=== PATIENT | female | born 1950 | race Caucasian/White ===

== ENCOUNTER 2017-05-16 16:58 | Inpatient (IN) | payer MEDICARE, BC ==
[~2017-05-16] VITALS: Ht 160 cm; Wt 72.6 kg
[2017-05-16 17:55] LABS: BASOPHILS 0.2 % (0-2); EOSINOPHILS 0.3 % (0-7); HEMATOCRIT 38.8 % (36.0-48.0); HEMOGLOBIN 13.6 g/dL (12-16); IMMATURE GRANULOCYTES 0.5 % (0-5); LYMPHOCYTES 12.3 % (15-50); MCH 32.3 pg (26.0-34.0); MCHC 35.1 g/dL (31.0-37.0); MCV 92.2 fL (80.0-100.0); MEAN PLATELET VOLUME 9.4 fL (7.4-10.4); MONOCYTES 7.5 % (2-11); NEUTROPHILS 79.2 % (40-80); PLATELET COUNT 291 10x3/uL (130-400); RBC 4.21 10x6/uL (4.00-5.40); RDW 13.8 % (11.5-14.5); WBC 11.6 10x3/uL (4.8-10.8)
[2017-05-16 18:15] LABS: ALBUMIN 3.8 g/dL (3.4-5.0); ALKALINE PHOSPHATASE 73 U/L (46-116); ALT (SGPT) 36 U/L (10-68); BILIRUBIN - TOTAL 0.48 mg/dL (0.2-1.3); CALC OSMOLALITY 244 mosm/kg (275-300); CALCIUM 8.5 mg/dL (8.5-10.1); CARBON DIOXIDE 22.9 mmol/L (21.0-32.0); CHLORIDE - SERUM 86 mmol/L (98-107); CREATININE - SERUM 0.6 mg/dL (0.6-1.3); GLUCOSE 121 mg/dL (74-106); POTASSIUM - SERUM 3.8 mmol/L (3.5-5.1); PROTEIN - SERUM 7.2 g/dL (6.4-8.2); SODIUM 122 mmol/L (136-145); UREA NITROGEN 8 mg/dL (7-18); eGFR NON AFRICAN AMERICAN > 90 mL/min (90-120)
[2017-05-16 18:26] LABS: CKMB 2.5 U/L (0.0-3.6); CREATINE KINASE 140 UL (21-215)
[2017-05-16 18:28] LABS: TROPONIN-I < 0.017 ng/mL (0.000-0.060)
[2017-05-16 19:00] LABS: APPEARANCE CLEAR (CLEAR); BILIRUBIN NEGATIVE (NEGATIVE); COLOR YELLOW (YELLOW); GLUCOSE NEGATIVE (NEGATIVE); KETONE NEGATIVE (NEGATIVE); NITRITE NEGATIVE (NEGATIVE); PROTEIN NEGATIVE (NEGATIVE); UROBILINOGEN NORMAL (NORMAL)
[2017-05-16 19:16] LABS: INR 0.9 (0.85-1.17)
[2017-05-16 19:17] LABS: APTT 27.9 SECONDS (22.8-39.4)
[2017-05-16 20:13] LABS: CREATINE KINASE 87 UL (21-215)
[2017-05-16 20:22] LABS: TROPONIN-I < 0.017 ng/mL (0.000-0.060)
--- NOTE | 2017-05-16 20:52 | NUR ---
PT ARRIVED ON FLOOR VIA STRETCHER. TRANSFERRED TO BED BY NURSE X2 AND AID. SPOUSE AT SIDE. NG TUBE RETURNED TO [facility]. INCIDENT OF EMESIS X1 ON TRANSFER. IV TO LEFT HAND NS AT 125. MELISSA MAT IN PLACE. SCD'S AND NON SLIP SOCKS APPLIED. DENTURE CARE PROVIDED. ORIENTED TO ROOM AND CALL LIGHT. PRAJAPATI IN PLACE FROM ER.
[2017-05-16 21:14] VITALS: BP 136/81; BMI 28.4
[2017-05-16] MEDS ORDERED: ANASTROZOLE1 MG PO (21:19)
[2017-05-16] MEDS ORDERED: LOTREL 10/20 CA1 CAP PO (21:20)
[2017-05-16] MEDS ORDERED: LIPITOR80 MG PO (21:21)
[2017-05-16] MEDS ORDERED: HYDROCHLOROTH12.5 M1 PO (21:21)
[2017-05-16] MEDS ORDERED: FLORAJEN3 CAPS460 MG PO (21:23)
[2017-05-16] MEDS ORDERED: ASPIRIN325 MG PO (21:24)
--- NOTE | 2017-05-16 21:27 | NUR ---
RN NOTE: ADMISSION ASSESSMENT COMPLETE. WILL MONITOR FOR NEEDS.
--- NOTE | 2017-05-17 01:42 | NUR ---
PT IN HIGH FOWLERS POSITION. NG TO LIWS. EYES CLOSED. RESP EVEN AND UNLABORED. CALL LIGHT AT SIDE.
[2017-05-17 01:48] LABS: CREATINE KINASE 69 UL (21-215)
[2017-05-17 01:49] LABS: TROPONIN-I < 0.017 ng/mL (0.000-0.060)
[2017-05-17 01:52] VITALS: BP 125/75
[2017-05-17 03:58] LABS: BASOPHILS 0.1 % (0-2); EOSINOPHILS 0.1 % (0-7); HEMOGLOBIN 13.6 g/dL (12-16); IMMATURE GRANULOCYTES 0.2 % (0-5); LYMPHOCYTES 11.9 % (15-50); MCHC 34.9 g/dL (31.0-37.0); MCV 91.8 fL (80.0-100.0); MEAN PLATELET VOLUME 9.5 fL (7.4-10.4); MONOCYTES 6.4 % (2-11); NEUTROPHILS 81.3 % (40-80); RBC 4.25 10x6/uL (4.00-5.40); RDW 13.9 % (11.5-14.5); WBC 9.1 10x3/uL (4.8-10.8)
[2017-05-17 04:06] LABS: PLATELET COUNT 356 10x3/uL (130-400)
[2017-05-17 04:19] LABS: ALKALINE PHOSPHATASE 56 U/L (46-116); ALT (SGPT) 27 U/L (10-68); BILIRUBIN - TOTAL 0.33 mg/dL (0.2-1.3); CALC OSMOLALITY 262 mosm/kg (275-300); CARBON DIOXIDE 21.1 mmol/L (21.0-32.0); CHLORIDE - SERUM 96 mmol/L (98-107); GLUCOSE 96 mg/dL (74-106); PROTEIN - SERUM 5.6 g/dL (6.4-8.2); SODIUM 132 mmol/L (136-145); UREA NITROGEN 6 mg/dL (7-18)
[2017-05-17 04:26] LABS: CREATININE - SERUM 0.3 mg/dL (0.6-1.3)
[2017-05-17 04:27] LABS: eGFR NON AFRICAN AMERICAN > 90 mL/min (90-120)
[2017-05-17 04:28] LABS: CALCIUM 6.7 mg/dL (8.5-10.1); POTASSIUM - SERUM 2.3 mmol/L (3.5-5.1)
[2017-05-17 04:46] VITALS: BP 122/82
--- NOTE | 2017-05-17 04:49 | NUR ---
VERY LARGE DIFFERENCE BETWEEN ER LAB WORK AND AM LAB WORK LAB TO REDRAW BMP.
[2017-05-17 05:12] LABS: CALC OSMOLALITY 255 mosm/kg (275-300); CARBON DIOXIDE 24.8 mmol/L (21.0-32.0); CHLORIDE - SERUM 92 mmol/L (98-107); CREATININE - SERUM 0.4 mg/dL (0.6-1.3); GLUCOSE 113 mg/dL (74-106); SODIUM 128 mmol/L (136-145); UREA NITROGEN 8 mg/dL (7-18); eGFR NON AFRICAN AMERICAN > 90 mL/min (90-120)
[2017-05-17 05:13] LABS: POTASSIUM - SERUM 2.8 mmol/L (3.5-5.1)
--- NOTE | 2017-05-17 07:14 | NUR ---
PT LYING ON BED REQUESTED WARM WIPES TO CLEAN SELF UP, OFFERED TO ASSIST AND PT DECLINED STATING PRIDE IN THE WAY, GAVE PT PRIVACY, STARTED PT 3RD RIDER FOR POTASSIUM. CONTINUE WITH PT CARE
[2017-05-17 08:02] LABS: TROPONIN-I 0.024 ng/mL (0.000-0.060)
--- NOTE | 2017-05-17 08:04 | NUR ---
LYING IN BED,WITHOUT DISTRESS.CALL LIGHT IN REACH
[2017-05-17 08:42] VITALS: BP 117/77
--- NOTE | 2017-05-17 09:56 | NUR ---
PT NS DC AND IS NOW NS W/ 40KCL, PT FINISHED FOURTH RIDER WILL ORDER REDRAW BUT NOT START RYDERS WILL CONTINUE WITH CARE PLAN
[2017-05-17 10:28] LABS: MAGNESIUM - SERUM 2.1 mg/dL (1.8-2.4); PHOSPHOROUS 3.4 mg/dL (2.5-4.9)
[2017-05-17 11:26] VITALS: BP 118/71
--- NOTE | 2017-05-17 12:37 | NUR ---
Patient Name: JAIRON TINOCO Admission Status: ER Accout number: [id number] Admission Date: 05-16-2017 : 1950 Admission Diagnosis: Attending: ZAHRA FOWLER Current LOS: 1 Anticipated DC Date: 05-20-2017 Planned Disposition: Home Primary Insurance: MEDICARE A & B Discharge Planning Comments: CM MET WITH PATIENT REGARDING D/C NEEDS AND PLANS. PATIENT STATED SHE LIVES WITH HER SPOUSE (THOMAS) AND HE WILL DRIVE HER HOME AT DISCHARGE. PATIENT STATED THERE ARE NO STEPS OR STAIRS AT HER HOME. PATIENT STATED SHE IS INDEPENDENT WITH HER CARE AND HAS A WALKER, AND CANE AT HOME. PATIENTS PCP IS DR. MCCANN AND PHARMACY IS [facility]. PATIENT IS REFUSING HH AT THIS TIME. CM WILL CONTINUE TO FOLLOW PATIENT WITH D/C NEEDS AND PLANS. PCP DR. RAMY [facility]- [phone] THOMAS (SPOUSE) [phone] Is the patient Alert and Oriented? Yes 0 * How many steps to enter\exit or inside your home? 0 0 * PCP DR. MCCANN 0 * Pharmacy [facility] 0 * Preadmission Environment Home with Family 0 * ADLs Independent 0 * Equipment Cane Walker 0 * List name and contact numbers for known caregivers / representatives who currently or will assist patient after discharge: THOMAS (SPOUSE) [phone] 0 * Community resources currently utilized None 0 * Additional services required to return to the preadmission environment? Yes 0 * Can the patient safely return to the preadmission environment? Yes 0 * Has this patient been hospitalized within the prior 30 days at any hospital? No 0 Grand Total: 0
[2017-05-17 13:33] VITALS: Ht 160 cm; Wt 72.6 kg
--- NOTE | 2017-05-17 15:58 | NUR ---
CALLED [facility] TO OBTAIN REPORT FOR PY CT DONE YESTERDAY IN ER PER RENÉE IN READING ROOM INTERFACE WAS DOWN SO ALOT OF REPORTS ARE PENDING, RECIEVED REPORT VIA FAX FROM RENÉE IN READING ROOM, ADD TO PT CHART
[2017-05-17 16:10] VITALS: BP 116/68
[2017-05-17 20:00] VITALS: BP 151/91
[2017-05-18] VITALS: BP 141/88
--- NOTE | 2017-05-18 02:00 | NUR ---
PT RESTING IN BED WITH NO DISTRESS. RESPIRATIONS EVEN AND UNLABORED. SIDE RAILS X 2. BED IS LOW. CALL LIGHT IN REACH.
[2017-05-18 04:00] VITALS: BP 138/82
--- NOTE | 2017-05-18 05:27 | NUR ---
PATIENT COMPLAINED OF CHEST PAIN, TELEMTRY WAS 72NSR. SHE STATED THAT THE LAST TIME SHE HAD PAIN SIMILAR TO THIS SHE HAD A LOT OF GAS IN HER STOMACH, CURRENTLY HAS NGT TO LIS. SHE ALSO STATED THAT SHE HAS A DULL ACHE IN HER STOMACH AROUND 4-5/10 PAIN IN HER STOMACH.
[2017-05-18 05:38] LABS: BASOPHILS 0.1 % (0-2); EOSINOPHILS 0.4 % (0-7); HEMATOCRIT 37.2 % (36.0-48.0); HEMOGLOBIN 12.7 g/dL (12-16); IMMATURE GRANULOCYTES 0.1 % (0-5); LYMPHOCYTES 13.3 % (15-50); MCH 32.1 pg (26.0-34.0); MCHC 34.1 g/dL (31.0-37.0); MEAN PLATELET VOLUME 9.5 fL (7.4-10.4); MONOCYTES 8.8 % (2-11); NEUTROPHILS 77.3 % (40-80); PLATELET COUNT 351 10x3/uL (130-400); RBC 3.96 10x6/uL (4.00-5.40); RDW 14.3 % (11.5-14.5); WBC 8.4 10x3/uL (4.8-10.8)
[2017-05-18 05:43] LABS: MCV 93.9 fL (80.0-100.0)
[2017-05-18 05:53] LABS: ALKALINE PHOSPHATASE 55 U/L (46-116); ALT (SGPT) 23 U/L (10-68); BILIRUBIN - TOTAL 0.33 mg/dL (0.2-1.3); CALC OSMOLALITY 263 mosm/kg (275-300); CALCIUM 6.9 mg/dL (8.5-10.1); CARBON DIOXIDE 22.7 mmol/L (21.0-32.0); CHLORIDE - SERUM 101 mmol/L (98-107); CREATININE - SERUM 0.3 mg/dL (0.6-1.3); GLUCOSE 88 mg/dL (74-106); PROTEIN - SERUM 5.9 g/dL (6.4-8.2); SODIUM 134 mmol/L (136-145); UREA NITROGEN 3 mg/dL (7-18); eGFR NON AFRICAN AMERICAN > 90 mL/min (90-120)
--- NOTE | 2017-05-18 08:15 | NUR ---
PT IS LYING IN BED WITH HOB AT 30 DEGREES, C/O RT EAR ACHE AND CONGESTION, STATED SHE HAS BEEN COUGHING UP A LOT OF MUCUS AND EAR HAS PAINFUL RING EVERY NOW AND THEN. SHE STATED SHE BELIEVES NG TUBE IS CAUSING IT. PT STATED BP WAS HIGH, I HAVE PT UP IN CHAIR TO GET OUT OF BED FOR A BIT
[2017-05-18 08:45] VITALS: BP 152/91
--- NOTE | 2017-05-18 08:57 | NUR ---
PY C/O ABD PAIN WHEN PUT BACK IN BED, LSITENED AND NG TUBE SOUNDS IN PLACE, BILE AND MUCUS IS WHAT LOOKS TO BE DRAINING IN TUBE, CONTINUE WITH PLAN OF CARE
--- NOTE | 2017-05-18 10:02 | NUR ---
PT C/O NUMBNESS AND TINGLING IN LEFT HAND HAS BEEN GOING ON FOR 30 MINUTES. PT BP IS 113/61 HR109 AND O2 IS AT 94. WILL SEE IF CHANDRIKA OR DR KENNEY IS ON THE FLOOR
--- NOTE | 2017-05-18 10:08 | NUR ---
PT IV IN LEFT FOREARM IS INFILTRATED, TURNED IV OFF, LETTING ARM REST BEFORE STARTING IV IN PT LEFT HAND
--- NOTE | 2017-05-18 10:57 | NUR ---
PT SPOUSE CAME TO DESK WANTS PT TO BE DC STATED HAS BEEN HERE FOR THREE DAYS WITH NO ANSWERS AND PT HASNT EATEN IN THREE DAYS WANTS TO BE DC
[2017-05-18 12:36] VITALS: BP 142/76
[2017-05-18 16:47] VITALS: BP 136/74
--- NOTE | 2017-05-18 20:05 | NUR ---
SPOKE TO SHANDRA IN REGARDS TO PAIN MEDS FOR PT. PER SHANDRA GIVE DILAUDID .5 Q6 PRN
--- NOTE | 2017-05-18 20:36 | NUR ---
ADMINISTERED APPRESOLINE 10MG IVP FOR BP 184/102. PATIENT IS AWAKE, ALERT AND ORIENTED X'S 4. SHE DENIES NEEDS AT THIS TIME. SHE STATED HER BP IS NORMALLY REGULATED BY MEDICATION BUT SHE HAS NOT BEEN ABLE TO TAKE HER MEDICATION TODAY. HOB 30 DEGREES. BED IN LOWEST POSITION, CALL LIGHT IN REACH. BED RIALS UP X'S 2.
--- NOTE | 2017-05-18 20:40 | NUR ---
AWAKE,ALERT. NG PATENT TO RIGHT NARE AND DRAINING. IV INTACT TO LEFT WRIST WITHOUT EDEMA OR REDNESS NOTED. ABD SOFT NONDISTENDED WITH BOWEL SOUNDS HYPO ACTIVE. UP TO BSC WITH ASSIST. TOLERATED WELL. BACK TO BED. CL IN REACH
[2017-05-18 21:36] VITALS: BP 184/102
--- NOTE | 2017-05-19 01:48 | NUR ---
EYES CLOSED RESP EVEN AND UNLAOBRED. CL IN REACH
--- NOTE | 2017-05-19 05:28 | NUR ---
LYING QUIETLY. NO DISTRESS NOTED.NO COMPLAINTS VOICED. CL IN REACH
[2017-05-19 05:30] LABS: BASOPHILS 0.1 % (0-2); EOSINOPHILS 0.1 % (0-7); HEMOGLOBIN 12.6 g/dL (12-16); IMMATURE GRANULOCYTES 0.2 % (0-5); LYMPHOCYTES 8.6 % (15-50); MCH 31.7 pg (26.0-34.0); MCHC 34.1 g/dL (31.0-37.0); MCV 93.2 fL (80.0-100.0); MEAN PLATELET VOLUME 9.1 fL (7.4-10.4); MONOCYTES 10.6 % (2-11); NEUTROPHILS 80.4 % (40-80); PLATELET COUNT 351 10x3/uL (130-400); RBC 3.97 10x6/uL (4.00-5.40); RDW 14.6 % (11.5-14.5); WBC 8.1 10x3/uL (4.8-10.8)
[2017-05-19 06:05] LABS: ALBUMIN 3.2 g/dL (3.4-5.0); ALKALINE PHOSPHATASE 61 U/L (46-116); ALT (SGPT) 23 U/L (10-68); CALCIUM 7.2 mg/dL (8.5-10.1); CARBON DIOXIDE 20.6 mmol/L (21.0-32.0); CHLORIDE - SERUM 100 mmol/L (98-107); GLUCOSE 109 mg/dL (74-106); PROTEIN - SERUM 6.5 g/dL (6.4-8.2); SODIUM 133 mmol/L (136-145)
[2017-05-19 06:10] LABS: CALC OSMOLALITY 264 mosm/kg (275-300); CREATININE - SERUM 0.4 mg/dL (0.6-1.3); UREA NITROGEN 6 mg/dL (7-18); eGFR NON AFRICAN AMERICAN > 90 mL/min (90-120)
[2017-05-19 09:13] VITALS: BP 140/83
--- NOTE | 2017-05-19 09:54 | NUR ---
PT IS UP IN CHAIR, TOOK MORNING MEDS WITH NO PROBLEM , WALKED WITH PT FOR EVALUATION, PT HOPIN GTO HAVE NG TUBE OUT AND BE DC TODAY. REQUESTED TRADITIONAL THANKSGIVING PLATE TO BE ORDERED AND WRAPPED FOR PT
--- NOTE | 2017-05-19 11:11 | NUR ---
PT WAS IN SHOWER AND NG TUBE CAME OUTHAD KAZ PAGE DR ELDRIDGE TO SEE IF NEEDS TO BE REPLACED OR LEAVE OUT
[2017-05-19 12:30] VITALS: BP 127/78
--- NOTE | 2017-05-19 13:00 | NUR ---
PT STATED SHE TOLERAED LUNCH WELL, UNABLE TO EAT TOO MUCH SHE HAS NOT EATEN IN SEVERAL DAYS AND BECAME FULL QUICKLY. PT DID NOT HAVE ANY NAUSEA OR VOMITING AFTER EATING, ASKED IF SHE COULD TRY AN ENSURE OR BOOST TO SEE IF CAN HANDLE. ORDERED PT CECILY BOOST SHE DRANK 1/2 AND TOLERATED WELL. WILL SEE HOW PT FEELS AT DINNER. CONTINUE WITH PLAN OF CARE
--- NOTE | 2017-05-19 13:43 | NUR ---
RESTING QUIETLY IN BED AT THIS TIME. REPORTS MODERATE BM JUST NOW. DENIES NEEDS.
[2017-05-19 17:39] VITALS: BP 164/88
--- NOTE | 2017-05-19 19:45 | NUR ---
PT RESTING QUIETLY IN ROOM WITH LIGHTS OFF. WATCHING TV AT THIS TIME. DENIES ANY NEEDS. CALL LIGHT IN REACH. WILL CONTINUE WITH PLAN OF CARE.
[2017-05-19 21:54] VITALS: BP 136/67
[2017-05-20] VITALS: BP 122/77
[2017-05-20 04:00] VITALS: BP 123/89
[2017-05-20 05:56] LABS: BASOPHILS 0.3 % (0-2); EOSINOPHILS 0.6 % (0-7); HEMATOCRIT 36.1 % (36.0-48.0); HEMOGLOBIN 12.8 g/dL (12-16); IMMATURE GRANULOCYTES 0.1 % (0-5); MCH 32.9 pg (26.0-34.0); MCHC 35.5 g/dL (31.0-37.0); MCV 92.8 fL (80.0-100.0); MEAN PLATELET VOLUME 9.4 fL (7.4-10.4); MONOCYTES 9.2 % (2-11); NEUTROPHILS 78.8 % (40-80); PLATELET COUNT 341 10x3/uL (130-400); RBC 3.89 10x6/uL (4.00-5.40); RDW 14.7 % (11.5-14.5); WBC 7.7 10x3/uL (4.8-10.8)
[2017-05-20 06:55] LABS: ALBUMIN 3.4 g/dL (3.4-5.0); ALKALINE PHOSPHATASE 63 U/L (46-116); ALT (SGPT) 23 U/L (10-68); CALC OSMOLALITY 263 mosm/kg (275-300); CALCIUM 7.8 mg/dL (8.5-10.1); CARBON DIOXIDE 20.5 mmol/L (21.0-32.0); CHLORIDE - SERUM 100 mmol/L (98-107); CREATININE - SERUM 0.4 mg/dL (0.6-1.3); GLUCOSE 110 mg/dL (74-106); POTASSIUM - SERUM 4.6 mmol/L (3.5-5.1); PROTEIN - SERUM 6.9 g/dL (6.4-8.2); SODIUM 133 mmol/L (136-145); eGFR NON AFRICAN AMERICAN > 90 mL/min (90-120)
[2017-05-20 06:56] LABS: UREA NITROGEN 3 mg/dL (7-18)
--- NOTE | 2017-05-20 07:20 | NUR ---
REPORT RECEIVED FROM SENIOR WIND TURBINE TECHNICIAN NURSE. CALL LIGHT IN REACH.
--- NOTE | 2017-05-20 08:20 | NUR ---
ASSESSMENT COMPLETED. REFUSES SCDs. REFUSED LOVENOX. CALL LIGHT IN REACH.
[2017-05-20 08:29] VITALS: BP 134/87
--- NOTE | 2017-05-20 10:20 | NUR ---
DENIES NEEDS AT THIS TIME.
--- NOTE | 2017-05-20 10:38 | NUR ---
CM REASSESSMENT NOTE: PATIENT IS DISCHARGING HOME TODAY / SPOUSE DRIVING. PATIENT DENIED NEEDS FOR HOME HEALTH. DC IMM SERVED
--- NOTE | 2017-05-20 10:50 | NUR ---
IV DC'D WITH TIP INTACT.
--- NOTE | 2017-05-20 11:19 | NUR ---
AMBULATED 500 FE[address] IN HALLWAY WITH AT SIDE. TOLERATED WELL.
--- NOTE | 2017-05-20 12:30 | NUR ---
DC INSTRUCTIONS EXPLAINED TO PATIENT. VERBALIZED UNDERSTANDING.
--- NOTE | 2017-05-20 14:19 | NUR ---
IV DC'D WITH TIP INTACT.
--- NOTE | 2017-05-20 14:21 | NUR ---
IN ROOM WITH AT THIS TIME. IV HAS BEEN DC'D PER PROCEDURES RN AND DC INSTRUCTIONS HAVED BEEN DISCUSSED. DC'D TO VEHICLE VIA WC WITH .
== END 2017-05-20 14:21 | disposition home or self-care (01) | DRG 389 ==
LOC: D.ER 16:58 → D.MS 19:24
PROVIDERS: Family Medicine; ADMIT Family Medicine Adult Medicine
DX: K56.609 Unspecified intestinal obstruction, unspecified as to partial versus complete obstruction (principal); E87.1 Hypo-osmolality and hyponatremia; E87.6 Hypokalemia

== ENCOUNTER 2017-05-23 11:54 | Inpatient (IN) | payer MEDICARE, BC ==
[~2017-05-23] VITALS: Ht 160 cm; Wt 68.5 kg
[~2017-05-23 11:54] MED LIST: ANASTROZOLE1 MG PO; ASPIRIN325 MG PO; FLORAJEN3 CAPS460 MG PO; HYDROCHLOROTH12.5 M1 PO; LIPITOR80 MG PO; LOTREL 10/20 CA1 CAP PO
--- NOTE | 2017-05-23 12:00 | NUR ---
RECEIVED TO ROOM 2226 DIRECT ADMIT FROM WALK IN CLINIC. COMPLAINING OF ABDOMINAL PAIN RATED 4 ON PAIN SCALE. ABDOMEN DISTENDED BUT SOFT. BRUISING AND REDNESS NOTED TO R ANKLE FROM REPORTED FALL AT HOME THIS MORNING. BRUISING NOTED TO Andrés FA.
--- NOTE | 2017-05-23 12:15 | NUR ---
IV SITED TO L HAND WITH 20 GUAGE X 1 ATTEMPT. NS INFUSION STARTED AT 100 CC/HR VIA PUMP. NPO.
[2017-05-23 12:23] VITALS: BP 108/79; BMI 26.8
--- NOTE | 2017-05-23 13:48 | NUR ---
PROTONIX 40 MG SIVP PER ORDER. PASSWORD OBTAINED AND PLACED IN COMPUTER. CALL LIGHT IN REACH.
[2017-05-23 14:18] LABS: BASOPHILS 0.3 % (0-2); EOSINOPHILS 0.3 % (0-7); HEMATOCRIT 37.9 % (36.0-48.0); HEMOGLOBIN 12.9 g/dL (12-16); IMMATURE GRANULOCYTES 0.3 % (0-5); LYMPHOCYTES 14.3 % (15-50); MEAN PLATELET VOLUME 9.2 fL (7.4-10.4); MONOCYTES 9.5 % (2-11); NEUTROPHILS 75.3 % (40-80); PLATELET COUNT 348 10x3/uL (130-400); RBC 4.03 10x6/uL (4.00-5.40); RDW 14.1 % (11.5-14.5); WBC 7.5 10x3/uL (4.8-10.8)
[2017-05-23 14:52] LABS: ALBUMIN 3.5 g/dL (3.4-5.0); ALKALINE PHOSPHATASE 60 U/L (46-116); ALT (SGPT) 24 U/L (10-68); BILIRUBIN - TOTAL 0.43 mg/dL (0.2-1.3); CALC OSMOLALITY 264 mosm/kg (275-300); CALCIUM 8.7 mg/dL (8.5-10.1); CARBON DIOXIDE 24.6 mmol/L (21.0-32.0); CHLORIDE - SERUM 95 mmol/L (98-107); CREATININE - SERUM 0.6 mg/dL (0.6-1.3); GLUCOSE 106 mg/dL (74-106); POTASSIUM - SERUM 3.9 mmol/L (3.5-5.1); PROTEIN - SERUM 6.5 g/dL (6.4-8.2); SODIUM 131 mmol/L (136-145); UREA NITROGEN 17 mg/dL (7-18); eGFR NON AFRICAN AMERICAN > 90 mL/min (90-120)
--- NOTE | 2017-05-23 15:15 | NUR ---
SENIOR DATA WAREHOUSE ARCHITECT SHOWING SR WITH PAC'S 98 PER TECH. SCD'S IN USE TO BILAT LEGS.
--- NOTE | 2017-05-23 15:30 | NUR ---
SWELLING NOTED TO L HAND IV. IV REMOVED. CATHETER TIP INTACT.
[2017-05-23 16:14] VITALS: BP 110/74
--- NOTE | 2017-05-23 17:45 | NUR ---
20 GUAGE INSERTED TO L HAND X 1 ATTEMPT BY JAVIER RAM RN.
--- NOTE | 2017-05-23 19:51 | NUR ---
PATIENT RESTING IN BED AND IS CONCERNED ABOUT HER NIGHT MEDS AND WOULD LIKE THE DOCTOR PAGED. PATIENT DENIES OTHER NEEDS AT THIS TIME. BED IN LOWEST POSITION AND CALL LIGHT WITHIN REACH. ENCOURAGED THE PATIENT TO CALL IF SHE HAS OTHER NEEDS.
[2017-05-23 20:00] VITALS: BP 127/71
[2017-05-24 06:12] LABS: BASOPHILS 0.3 % (0-2); EOSINOPHILS 0.8 % (0-7); HEMATOCRIT 36.2 % (36.0-48.0); HEMOGLOBIN 12.6 g/dL (12-16); IMMATURE GRANULOCYTES 0.3 % (0-5); LYMPHOCYTES 14.7 % (15-50); MCHC 34.8 g/dL (31.0-37.0); MEAN PLATELET VOLUME 9.2 fL (7.4-10.4); MONOCYTES 12.1 % (2-11); NEUTROPHILS 71.8 % (40-80); PLATELET COUNT 324 10x3/uL (130-400); RBC 3.94 10x6/uL (4.00-5.40); WBC 6.6 10x3/uL (4.8-10.8)
[2017-05-24 06:29] LABS: MCV 91.9 fL (80.0-100.0)
[2017-05-24 07:03] LABS: ALBUMIN 3.3 g/dL (3.4-5.0); ALKALINE PHOSPHATASE 57 U/L (46-116); ALT (SGPT) 24 U/L (10-68); AMYLASE - SERUM 35 U/L (25-115); BILIRUBIN - TOTAL 0.42 mg/dL (0.2-1.3); CALCIUM 8.1 mg/dL (8.5-10.1); CARBON DIOXIDE 22.7 mmol/L (21.0-32.0); CHLORIDE - SERUM 98 mmol/L (98-107); GLUCOSE 102 mg/dL (74-106); POTASSIUM - SERUM 3.6 mmol/L (3.5-5.1); PROTEIN - SERUM 6.2 g/dL (6.4-8.2); SODIUM 134 mmol/L (136-145)
[2017-05-24 07:04] LABS: CALC OSMOLALITY 266 mosm/kg (275-300); CREATININE - SERUM 0.4 mg/dL (0.6-1.3); UREA NITROGEN 11 mg/dL (7-18); eGFR NON AFRICAN AMERICAN > 90 mL/min (90-120)
--- NOTE | 2017-05-24 07:50 | NUR ---
ASSESSMENT COMPLETE. NO IV ACCESS AT THIS TIME. MANAGER LABOR DELIVERY SHOWING SR WITH PAC'S 90 PER TECH. BRUISING AND SWELLING NOTED TO R FOOT. NPO.
--- NOTE | 2017-05-24 08:00 | NUR ---
20 GUAGE SITED TO WRIST BY ZAINAB JACKSON RN.
--- NOTE | 2017-05-24 08:10 | NUR ---
OFF FLOOR TO CT VIA WC.
[2017-05-24 08:40] VITALS: BP 119/70
--- NOTE | 2017-05-24 09:41 | NUR ---
Patient Name: JAIRON TINOCO Admission Status: Urgent Accout number: [id number] Admission Date: 05-23-2017 : 1950 Admission Diagnosis:UNSPECIFIED ABDOMINAL PAIN Attending: RAMY, Current LOS: 1 Anticipated DC Date: 05-27-2017 Planned Disposition: Home Primary Insurance: MEDICARE A & B Discharge Planning Comments: CM MET WITH PATIENT REGARDING D/C NEEDS AND PLANS. PATIENT STATED SHE LIVES WITH HER SPOUSE (HIEU) AND HE WILL DRIVE HER HOME AT DISCHARGE. PATIENT STATED SHE IS INDEPENDENT WITH HER CARE AND HAS A WALKER, AND CANE AT HOME IF NEEDED. PATIENTS PCP IS DR. MCCANN AND PHARMACY IS [facility]. PATIENT DENIES NEEDS FOR HH AT DISCHARGE. CM WILL CONTINUE TO FOLLOW PATIENT WITH D/C NEEDS AND PLANS. PCP DR. RAMY MU[facility]OZ [facility]- [phone] HIEU (SPOUSE) [phone] Neurophysiologist: Jackie Curry Is the patient Alert and Oriented? Yes 0 * How many steps to enter\exit or inside your home? 0 0 * PCP DR. MCCANN 0 * Pharmacy [facility] 0 * Preadmission Environment Home with Family 0 * ADLs Independent 0 * Equipment Cane Walker 0 * List name and contact numbers for known caregivers / representatives who currently or will assist patient after discharge: THOMAS TINOCO (SPOUSE) [phone] 0 * Community resources currently utilized None 0 * Additional services required to return to the preadmission environment? Yes 0 * Can the patient safely return to the preadmission environment? Yes 0 * Has this patient been hospitalized within the prior 30 days at any hospital? Yes 0 Grand Total: 0
--- NOTE | 2017-05-24 10:30 | NUR ---
FLEETS ENEMA GIVEN WITH SMALL LIQUID STOOL RESULTED.
--- NOTE | 2017-05-24 12:00 | NUR ---
NO CHANGES NOTED AT THIS TIME.
[2017-05-24 12:45] VITALS: BP 126/79
[2017-05-24 14:08] VITALS: Ht 160 cm; Wt 68.5 kg
--- NOTE | 2017-05-24 15:00 | NUR ---
STILL TRYING TO START 24 HOUR URINE COLLECTION. PATIENT CONTINUES TO MISS COLLECTION HAT WITH VOIDING OR STOOL MIXES WITH URINE.
--- NOTE | 2017-05-24 18:30 | NUR ---
24 HOUR URINE COLLECTION STARTED AND URINE SPECIMEN SENT TO LAB. TOLERATING FULL LIQUID AT THIS TIME.
[2017-05-24 19:30] VITALS: BP 98/59
--- NOTE | 2017-05-24 19:34 | NUR ---
PATIENT RESTING IN BED AND DENIES NEEDS AT THIS TIME. BED IN LOWEST POSITION AND CALL LIGHT WITHIN REACH. ENCOURAGED THE PATIENT TO CALL IF SHE HAS NEEDS.
[2017-05-24 23:30] VITALS: BP 124/75
[2017-05-25 04:59] VITALS: BP 138/76
[2017-05-25 06:09] LABS: BASOPHILS 0.3 % (0-2); EOSINOPHILS 0.8 % (0-7); HEMATOCRIT 35.5 % (36.0-48.0); HEMOGLOBIN 12.1 g/dL (12-16); IMMATURE GRANULOCYTES 0.2 % (0-5); LYMPHOCYTES 10.3 % (15-50); MCH 31.6 pg (26.0-34.0); MCHC 34.1 g/dL (31.0-37.0); MCV 92.7 fL (80.0-100.0); MEAN PLATELET VOLUME 9.2 fL (7.4-10.4); MONOCYTES 9.6 % (2-11); NEUTROPHILS 78.8 % (40-80); PLATELET COUNT 383 10x3/uL (130-400); RBC 3.83 10x6/uL (4.00-5.40); RDW 14.1 % (11.5-14.5); WBC 6.1 10x3/uL (4.8-10.8)
[2017-05-25 06:40] LABS: ALBUMIN 3.1 g/dL (3.4-5.0); ALKALINE PHOSPHATASE 59 U/L (46-116); ALT (SGPT) 25 U/L (10-68); BILIRUBIN - TOTAL 0.37 mg/dL (0.2-1.3); CALC OSMOLALITY 258 mosm/kg (275-300); CALCIUM 7.8 mg/dL (8.5-10.1); CARBON DIOXIDE 24.9 mmol/L (21.0-32.0); CHLORIDE - SERUM 98 mmol/L (98-107); CREATININE - SERUM 0.4 mg/dL (0.6-1.3); GLUCOSE 110 mg/dL (74-106); POTASSIUM - SERUM 3.3 mmol/L (3.5-5.1); PROTEIN - SERUM 6.5 g/dL (6.4-8.2); SODIUM 130 mmol/L (136-145); eGFR NON AFRICAN AMERICAN > 90 mL/min (90-120)
[2017-05-25 06:43] LABS: UREA NITROGEN 5 mg/dL (7-18)
[2017-05-25 08:44] VITALS: BP 131/78
[2017-05-25 12:09] VITALS: BP 96/63
[2017-05-25 12:14] LABS: THYROGLOBULIN ANTIBODY <1.0 IU/mL (0.0-0.9); THYROID PEROXIDASE ABS 10 IU/mL (0-34)
[2017-05-25 16:16] VITALS: BP 114/69
[2017-05-25 21:51] VITALS: BP 121/62
[2017-05-25 23:45] VITALS: BP 128/79
[2017-05-26 04:00] VITALS: BP 130/60
[2017-05-26 05:48] LABS: BASOPHILS 0.4 % (0-2); EOSINOPHILS 1.2 % (0-7); HEMATOCRIT 35.5 % (36.0-48.0); HEMOGLOBIN 12.2 g/dL (12-16); IMMATURE GRANULOCYTES 0.4 % (0-5); LYMPHOCYTES 16.6 % (15-50); MCHC 34.4 g/dL (31.0-37.0); MCV 93.2 fL (80.0-100.0); MEAN PLATELET VOLUME 9.3 fL (7.4-10.4); MONOCYTES 14.2 % (2-11); NEUTROPHILS 67.2 % (40-80); PLATELET COUNT 348 10x3/uL (130-400); RBC 3.81 10x6/uL (4.00-5.40); RDW 14.2 % (11.5-14.5); WBC 4.9 10x3/uL (4.8-10.8)
[2017-05-26 06:08] LABS: ALBUMIN 3.4 g/dL (3.4-5.0); ALKALINE PHOSPHATASE 64 U/L (46-116); ALT (SGPT) 26 U/L (10-68); BILIRUBIN - TOTAL 0.32 mg/dL (0.2-1.3); CALC OSMOLALITY 265 mosm/kg (275-300); CARBON DIOXIDE 25.2 mmol/L (21.0-32.0); CHLORIDE - SERUM 100 mmol/L (98-107); CREATININE - SERUM 0.4 mg/dL (0.6-1.3); GLUCOSE 103 mg/dL (74-106); POTASSIUM - SERUM 3.6 mmol/L (3.5-5.1); PROTEIN - SERUM 6.3 g/dL (6.4-8.2); SODIUM 135 mmol/L (136-145); eGFR NON AFRICAN AMERICAN > 90 mL/min (90-120)
[2017-05-26 06:15] LABS: UREA NITROGEN 2 mg/dL (7-18)
--- NOTE | 2017-05-26 08:00 | NUR ---
PT AOX4 RESP EVEN AND NONLABORED PT DENIES NEEDS AT THIS TIME SRX2 BED AT LOWEST SETTING CALL LIGHT WITHIN REACH WILL CONTINUE TO MONITOR
[2017-05-26 08:37] VITALS: BP 153/78
--- NOTE | 2017-05-26 10:53 | NUR ---
NUTRITION F/U CHART REVIEWED. PT CURRENTLY NPO FOR COLONOSCOPY. WILL MONITOR DIET ADVANCEMENT, PO INTAKE. RD FOLLOWING
--- NOTE | 2017-05-26 12:56 | NUR ---
CM REASSESSMENT NOTE: PATIENT TO DISCHARGE HOME TODAY/SPOUSE DRIVING. JARED REF. HOME HEALTH AND HAD NO OTHER NEEDS FOR D/C. IMM SERVED
--- NOTE | 2017-05-26 13:20 | OP ---
PATIENT NAME: JAIRON TINOCO MEDICAL RECORD: [id number] :[birth year] LOCATION:D.[id number] ADMISSION DATE:05/23/17 SURGEON: LOLITA LEIJA MD DATE OF OPERATION: 05/26/2017 SURGEON: Lolita Leija MD PREOPERATIVE DIAGNOSES: 1. Abdominal pain. 2. Bowel obstruction. POSTOPERATIVE DIAGNOSES: 1. Abdominal pain. 2. Bowel obstruction. PROCEDURE PERFORMED: Colonoscopy. ANESTHESIA: Total intravenous anesthesia. COMPLICATIONS: None. SPECIMENS: None. Case was contaminated. ESTIMATED BLOOD LOSS: Minimal. OPERATIVE COURSE: After consent was obtained, the patient was taken to the endoscopy suite. At this time, a timeout was taken to confirm the correct patient and procedure. The patient was placed in left lateral decubitus position, total intravenous anesthesia was given. Digital rectal exam was performed. No masses were identified. Next, the colonoscope was inserted through the rectum. The rectum and colon were insufflated. The scope was advanced to the cecum. The ileocecal valve and appendiceal orifice were identified and photographed. Approximately 7 minutes was spent on withdrawal of the scope. There was some mild diverticular disease. There was no evidence of bleeding. No masses, no polyps. The scope was retroflexed. There were no internal hemorrhoids noted on exam. At this time, the scope was reinserted to the sigmoid colon. Again, the colon was inspected as it was desufflated upon withdrawal of the scope. At this time, the scope was withdrawn and the case was terminated. At the end of the procedure, no complications occurred. The patient was transferred to the recovery room in satisfactory condition. TRANSINT:[id number] Voice Confirmation ID: [id number] DOCUMENT ID: [id number] LOLITA LEIJA MD at 1320 CC: [id number] DICTATION DATE: 05/26/17 0842 AUTOMOTIVE GLASS SPECIALIST: 05/26/17 1021 [place] [address]
--- NOTE | 2017-05-26 15:04 | NUR ---
IV DISCONTINUED WITH CATHETER INTACT AT THIS TIME PT GIVEN DISCHARGE INSTRUCTIONS AT THIS TIME PT TAKEN VIA WHEELCHAIR VIA PRIVATE VEHICLE AT THIS TIME
[2017-05-31 18:10] LABS: CORTISOL FREE - 24HR 36 ug/24 hr (0-50); CORTISOL FREE - UR 14 ug/L (Undefined)
== END 2017-05-26 15:07 | disposition home or self-care (01) | DRG 389 ==
LOC: D.MS 11:54
PROVIDERS: Surgery; ADMIT Family Medicine
PROC: 0DJD8ZZ Inspection of Lower Intestinal Tract, Via Natural or Artificial Opening Endoscopic (ICD-10-PCS; principal; 2017-05-26 08:00)
DX: K56.600 Partial intestinal obstruction, unspecified as to cause (principal); E87.1 Hypo-osmolality and hyponatremia; R55 Syncope and collapse; E86.0 Dehydration; E87.6 Hypokalemia; K57.90 Diverticulosis of intestine, part unspecified, without perforation or abscess without bleeding

== ENCOUNTER → 2018-03-29 07:49 | Outpatient (CLI) | payer MEDICARE, BC ==
[2017-05-24 14:08] VITALS: BMI 26.7
== END | disposition home or self-care (01) ==
LOC: D.NM 07:49
DX: R10.13 Epigastric pain (principal)

== ENCOUNTER → 2018-04-05 08:58 | Outpatient (CLI) | payer MEDICARE, BC ==
[2017-05-24 14:08] VITALS: BMI 26.7
== END | disposition home or self-care (01) ==
LOC: D.US 08:58
DX: R93.89 Abnormal findings on diagnostic imaging of other specified body structures (principal)

== ENCOUNTER 2018-06-19 15:37 | Emergency (ER) | payer MEDICARE, BC ==
[~2018-06-19] VITALS: Ht 160 cm; Wt 61.4 kg
[2018-06-19 15:40] VITALS: Ht 160 cm; Wt 61.4 kg
[2018-06-19 16:28] LABS: APPEARANCE CLEAR (CLEAR); BILIRUBIN NEGATIVE (NEGATIVE); COLOR YELLOW (YELLOW); GLUCOSE NEGATIVE (NEGATIVE); KETONE NEGATIVE (NEGATIVE); NITRITE NEGATIVE (NEGATIVE); PROTEIN NEGATIVE (NEGATIVE); UROBILINOGEN NORMAL (NORMAL)
[2018-06-19 16:54] LABS: BASOPHILS 0.3 % (0-2); EOSINOPHILS 0.3 % (0-7); HEMATOCRIT 34.4 % (36.0-48.0); IMMATURE GRANULOCYTES 0.3 % (0-5); LYMPHOCYTES 13.5 % (15-50); MCH 32.1 pg (26.0-34.0); MCHC 34.9 g/dL (31.0-37.0); MONOCYTES 12.1 % (2-11); NEUTROPHILS 73.5 % (40-80); RBC 3.74 10x6/uL (4.00-5.40); RDW 13.8 % (11.5-14.5); WBC 7.8 10x3/uL (4.8-10.8)
[2018-06-19 17:05] LABS: PLATELET COUNT 274 10x3/uL (130-400)
[2018-06-19 17:10] LABS: ALBUMIN 3.4 g/dL (3.4-5.0); ALKALINE PHOSPHATASE 50 U/L (46-116); ALT (SGPT) 23 U/L (10-68); BILIRUBIN - TOTAL 0.27 mg/dL (0.2-1.3); CALC OSMOLALITY 261 mosm/kg (275-300); CALCIUM 8.6 mg/dL (8.5-10.1); CARBON DIOXIDE 27.4 mmol/L (21.0-32.0); CHLORIDE - SERUM 92 mmol/L (98-107); CREATININE - SERUM 0.7 mg/dL (0.6-1.3); GLUCOSE 102 mg/dL (74-106); MAGNESIUM - SERUM 1.7 mg/dL (1.8-2.4); POTASSIUM - SERUM 3.4 mmol/L (3.5-5.1); PROTEIN - SERUM 6.6 g/dL (6.4-8.2); SODIUM 130 mmol/L (136-145); UREA NITROGEN 15 mg/dL (7-18); eGFR NON AFRICAN AMERICAN 88 mL/min (90-120)
[2018-06-19] MEDS ORDERED: MECLIZINE HCL25 MG PO (18:05)
[2018-06-19 18:25] VITALS: BP 175/98
== END 2018-06-19 18:26 | disposition home or self-care (01) ==
LOC: D.ER 15:37
PROVIDERS: Family Medicine
DX: R42 Dizziness and giddiness (principal); Z86.73 Personal history of transient ischemic attack (TIA), and cerebral infarction without residual deficits; I10 Essential (primary) hypertension

== ENCOUNTER 2018-09-03 11:57 | Inpatient (IN) | payer MEDICARE, BC ==
[~2018-09-03] VITALS: Ht 160 cm; Wt 62.6 kg
[~2018-09-03 11:57] MED LIST changes: +MECLIZINE HCL25 MG PO
[2018-09-03 12:41] LABS: BASOPHILS 0.1 % (0-2); EOSINOPHILS 0.1 % (0-7); HEMATOCRIT 43.2 % (36.0-48.0); HEMOGLOBIN 15.5 g/dL (12-16); IMMATURE GRANULOCYTES 0.7 % (0-5); LYMPHOCYTES 9.1 % (15-50); MCH 32.8 pg (26.0-34.0); MCHC 35.9 g/dL (31.0-37.0); MCV 91.5 fL (80.0-100.0); MEAN PLATELET VOLUME 9.2 fL (7.4-10.4); MONOCYTES 6.4 % (2-11); NEUTROPHILS 83.6 % (40-80); RBC 4.72 10x6/uL (4.00-5.40); RDW 14.1 % (11.5-14.5); WBC 17.6 10x3/uL (4.8-10.8)
[2018-09-03 12:52] LABS: PLATELET COUNT 378 10x3/uL (130-400)
[2018-09-03 12:59] LABS: ALBUMIN 4.4 g/dL (3.4-5.0); ANION GAP 16.9 mmol/L (8-16); BILIRUBIN - TOTAL 0.59 mg/dL (0.2-1.3); CALCIUM 10.2 mg/dL (8.5-10.1); CARBON DIOXIDE 27.2 mmol/L (21.0-32.0); POTASSIUM - SERUM 4.1 mmol/L (3.5-5.1); PROTEIN - SERUM 8.4 g/dL (6.4-8.2)
[2018-09-03 16:00] VITALS: BP 90/66
[2018-09-03 17:10] VITALS: BP 94/64
[2018-09-03 17:27] VITALS: BP 85/70
[2018-09-03 17:40] VITALS: BP 94/64
--- NOTE | 2018-09-03 18:53 | NUR ---
PT ARRIVED ON UNIT VIA STRETCHER ESCORTED BY ER STAFF. TRANSFERRED TO BED AND POSITIONED FOR COMFORT. IV IN LEFT AC PATENT...STARTED IV FLUIDS PER ORDER: D5LR @ 100 ML / HR.
[2018-09-03 20:00] VITALS: BP 112/65
[2018-09-03 22:53] VITALS: BP 112/65; BMI 24.5
--- NOTE | 2018-09-03 23:11 | NUR ---
ADMISSION ASSESSMENT AND HISTORY COMPLETE.
[2018-09-04] VITALS: BP 112/69
[2018-09-04 03:00] VITALS: BP 128/71
--- NOTE | 2018-09-04 05:16 | NUR ---
PT REQUESTING PAIN MEDICATION FOR CHRONIC PAIN IN BACK AND ABDOMINAL PAIN. GAVE MORPHINE 4 MG IVP PER PRN ORDER. WILL MONITOR FOR EFFECTIVENESS.
--- NOTE | 2018-09-04 05:31 | NUR ---
PT UNABLE TO VOID SINCE ADMIT, DESPITE SEVERAL ATTEMPTS. BLADDER SCAN REVEALED 500 ML RETAINED URINE. IN AND OUT CATH PERFORMED AND RESULTED IN 525 DARK YELLOW URINE. COLLECTED SAMPLE AND DELIVERED TO LAB FOR ORDERED STUDIES. PT TOLERATED WELL.
[2018-09-04 05:42] LABS: APPEARANCE CLEAR (CLEAR); BILIRUBIN NEGATIVE (NEGATIVE); COLOR YELLOW (YELLOW); GLUCOSE NEGATIVE (NEGATIVE); KETONE SMALL mg/dL (NEGATIVE); NITRITE NEGATIVE (NEGATIVE); PROTEIN NEGATIVE (NEGATIVE); SPECIFIC GRAVITY 1.015 (1.005-1.020); UROBILINOGEN NORMAL (NORMAL)
[2018-09-04 08:30] VITALS: BP 100/62
--- NOTE | 2018-09-04 09:48 | NUR ---
CALLED LAB IN [facility] TO LABWORK ORDERED, SPOKE WITH SEPTEMBER STATED THEY ARE GETTING RIGHT ON IT
[2018-09-04 10:26] LABS: CALC OSMOLALITY 275 mosm/kg (275-300); CALCIUM 8.2 mg/dL (8.5-10.1); CARBON DIOXIDE 32.3 mmol/L (21.0-32.0); CHLORIDE - SERUM 98 mmol/L (98-107); GLUCOSE 141 mg/dL (74-106); SODIUM 135 mmol/L (136-145); UREA NITROGEN 23 mg/dL (7-18)
[2018-09-04 10:52] LABS: BASOPHILS 0 % (0-2); EOSINOPHILS 0 % (0-7); HEMATOCRIT 33.6 % (36.0-48.0); HEMOGLOBIN 11.8 g/dL (12-16); IMMATURE GRANULOCYTES 0.3 % (0-5); LYMPHOCYTES 4.4 % (15-50); MCH 32.3 pg (26.0-34.0); MCHC 35.1 g/dL (31.0-37.0); MCV 92.1 fL (80.0-100.0); MEAN PLATELET VOLUME 9.5 fL (7.4-10.4); MONOCYTES 6.2 % (2-11); NEUTROPHILS 89.1 % (40-80); PLATELET COUNT 366 10x3/uL (130-400); RBC 3.65 10x6/uL (4.00-5.40); RDW 14.5 % (11.5-14.5); WBC 20.7 10x3/uL (4.8-10.8)
[2018-09-04 11:00] LABS: CREATININE - SERUM 0.6 mg/dL (0.6-1.3); eGFR NON AFRICAN AMERICAN > 90 mL/min (90-120)
[2018-09-04 11:02] LABS: POTASSIUM - SERUM 2.9 mmol/L (3.5-5.1)
[2018-09-04 12:42] VITALS: BMI 24.4
--- NOTE | 2018-09-04 12:57 | NUR ---
I have reviewed this patient and I concur with the Shift Assessment completed by the Licensed Practical Nurse today this shift.
[2018-09-04 13:20] VITALS: Ht 160 cm; Wt 62.6 kg
[2018-09-04 13:52] VITALS: BP 137/77
[2018-09-04 17:17] VITALS: BP 122/69
[2018-09-04 20:00] VITALS: BP 110/64
--- NOTE | 2018-09-04 20:00 | NUR ---
ASSESSMENT PER FLOWSHEET. IV PATENT LEFT WRIST OF D5LR AT 100CC'S/HR SITE CLEAR. SCD'S ON DENIES NEEDS.
--- NOTE | 2018-09-04 20:11 | NUR ---
C/O NAUSEA NO EMESIS SEEN. ZOFRAN 4MG IVP GIVEN FOR RELIEF OF NAUSEA. SR UP X2 CALL LIGHT WITHIN REACH.
--- NOTE | 2018-09-05 | NUR ---
RESTING QUIETLY RESPIRATIONS WITH EASE AND UNLABORED. SR UP X2 CALL LIGHT WITHIN REACH.
[2018-09-05 04:00] VITALS: BP 122/69
--- NOTE | 2018-09-05 06:00 | NUR ---
EYES CLOSED RESPIRATIONS WITH EASE AND UNLABORED. NO CHANGES IN ASSESSMENT REMAINS NPO.
[2018-09-05 06:01] LABS: BASOPHILS 0.1 % (0-2); EOSINOPHILS 0.1 % (0-7); HEMATOCRIT 31.8 % (36.0-48.0); HEMOGLOBIN 10.9 g/dL (12-16); IMMATURE GRANULOCYTES 0.2 % (0-5); MCH 31.7 pg (26.0-34.0); MCHC 34.3 g/dL (31.0-37.0); MCV 92.4 fL (80.0-100.0); MEAN PLATELET VOLUME 9.5 fL (7.4-10.4); MONOCYTES 6.8 % (2-11); NEUTROPHILS 85.8 % (40-80); PLATELET COUNT 322 10x3/uL (130-400); RBC 3.44 10x6/uL (4.00-5.40); RDW 14.4 % (11.5-14.5)
[2018-09-05 06:11] LABS: WBC 14.2 10x3/uL (4.8-10.8)
[2018-09-05 06:19] LABS: CALC OSMOLALITY 263 mosm/kg (275-300); CALCIUM 7.9 mg/dL (8.5-10.1); CARBON DIOXIDE 29.9 mmol/L (21.0-32.0); CHLORIDE - SERUM 97 mmol/L (98-107); CREATININE - SERUM 0.5 mg/dL (0.6-1.3); GLUCOSE 114 mg/dL (74-106); POTASSIUM - SERUM 3.2 mmol/L (3.5-5.1); SODIUM 132 mmol/L (136-145); eGFR NON AFRICAN AMERICAN > 90 mL/min (90-120)
[2018-09-05 06:23] LABS: UREA NITROGEN 6 mg/dL (7-18)
[2018-09-05 09:06] VITALS: BP 126/69
--- NOTE | 2018-09-05 13:27 | NUR ---
PT LYING IN BED, STATED PAIN IS MORE SORENESS IN ABDOMEN THEN PAIN. PT STATES SHE PASSED GAS. NO OTHER NEEDS VOICED, CONTINUE WITH PLAN OFCARE
[2018-09-05 15:12] VITALS: BP 122/78
[2018-09-05 17:36] VITALS: BP 134/78
[2018-09-05 20:00] VITALS: BP 131/79
--- NOTE | 2018-09-05 20:34 | NUR ---
I HAVE REVIEWED THIS PT AND I CONCORED WITH PT SHIFT ASSESSMENT BY THE PRE SALES TECHNICAL CONSULTANT
--- NOTE | 2018-09-05 20:45 | NUR ---
AWAKE,ALERT.NO COMPLAINTS VOICED. ABD SOFT NONDISTENTED WITH BOWEL SOUNDS PRESENT. IV INFUSING TO LFA WITHOUT REDNESS OR EDEMA NOTED. UP AD SUDHEER IN ROOM. CL IN REACH
[2018-09-06 04:00] VITALS: BP 119/72
--- NOTE | 2018-09-06 04:03 | NUR ---
I have reviewed this patient and I concur with the Shift Assessment completed by the Licensed Practical Nurse today this shift.
[2018-09-06 05:15] LABS: BASOPHILS 0.2 % (0-2); EOSINOPHILS 0.4 % (0-7); HEMATOCRIT 31.2 % (36.0-48.0); HEMOGLOBIN 10.9 g/dL (12-16); IMMATURE GRANULOCYTES 0.3 % (0-5); LYMPHOCYTES 5.6 % (15-50); MCH 32.2 pg (26.0-34.0); MCHC 34.9 g/dL (31.0-37.0); MCV 92.3 fL (80.0-100.0); MEAN PLATELET VOLUME 9.5 fL (7.4-10.4); MONOCYTES 7.5 % (2-11); PLATELET COUNT 318 10x3/uL (130-400); RBC 3.38 10x6/uL (4.00-5.40); RDW 14.1 % (11.5-14.5)
[2018-09-06 05:53] LABS: CALC OSMOLALITY 259 mosm/kg (275-300); CALCIUM 7.8 mg/dL (8.5-10.1); CHLORIDE - SERUM 96 mmol/L (98-107); GLUCOSE 102 mg/dL (74-106); MAGNESIUM - SERUM 1.8 mg/dL (1.8-2.4); POTASSIUM - SERUM 3.4 mmol/L (3.5-5.1); SODIUM 131 mmol/L (136-145); UREA NITROGEN 5 mg/dL (7-18)
[2018-09-06 05:55] LABS: CREATININE - SERUM 0.3 mg/dL (0.6-1.3); eGFR NON AFRICAN AMERICAN > 90 mL/min (90-120)
[2018-09-06 09:07] VITALS: BP 134/65
--- NOTE | 2018-09-06 10:29 | NUR ---
PT LYING IN BED, STATED MORE TESTS ARE TO BE DONE TODAY BEFORE SHE MAY EAT, PT STATED PAIN IS AT A 2, ADMINISTERED PRN PAIN MEDICATION WELL NAUSEA MEDICATION THIS MORNING WITH MORNING MEDS, CL IN REACH, BED IN LOWEST POSITION, CONTINUE WITH PLAN OF CARE
--- NOTE | 2018-09-06 14:58 | NUR ---
WENT TO ANSWER PT CL, PT HAD LARGE BM AND WAS UNABLE TO MAKE IT TO RESTROOM IN TIME, PT HAD ALL OVER BED AND FLOOR LEADING INTO RESTROOM, ASSITED PT INTO SHOWER, PT STATED SHE FEELS A LOT BETTER, NO OTHER NEEDS AT THIS TIME, CONTINUE WITH PLAN OF CARE
--- NOTE | 2018-09-06 16:50 | NUR ---
PT HAD ANOTHER BLOWOUT AND WAS UNABLE OT MAKE IT TO RESTROOM, FECES ALL OVER BED, GOWN AND TOILET AGAIN, ASSISTED PT TO SHOWER AND CLEANED PT'S ROOM. PT STATED SHE DOES FEEL A LOT BETTER, CONTINUE WIHT PLAN OF CARE
[2018-09-06 17:07] VITALS: BP 108/64
--- NOTE | 2018-09-06 17:38 | MORECARE ---
CASE MANAGEMENT DISCHARGE SUMMARY PATIENT: JAIRON TINOCO UNIT: [id number] ADM DATE: 09/03/18 AGE: 68 : 50 SEX: F ROOM/BED: D.2223 AUTHOR: LISA EUGENE PHYSICIAN: REFERRING PHYSICIAN: HUI ASHRAF MD DATE OF SERVICE: 09/06/18 Discharge Plan Patient Name: JAIRON TINOCO [facility] [facility] 1950 Planned Disposition: Home Anticipated Discharge Date: Discharge Date: Expected LOS: Initial Reviewer: [email or web address] Initial Review Date: 09/06/2018 Generated: 09/06/18 6:38 pm DCPIA - Discharge Planning Initial Assessment Updated by [email or web address]: Sienna Gregorio on 09/06/18 5:38 pm * Is the patient Alert and Oriented? Yes * PCP Dr. Mead * Pharmacy [facility] * Preadmission Environment Home with Family * ADLs Independent * Equipment Cane Walker * List name and contact numbers for known caregivers / representatives who currently or will assist patient after discharge: [facility] - [phone] * Verbal permission to speak to the caregivers and representatives has been obtained from the patient. Yes * Community resources currently utilized None * Additional services required to return to the preadmission environment? No * Can the patient safely return to the preadmission environment? Yes * Has this patient been hospitalized within the prior 30 days at any hospital? No Patient Name: JAIRON TINOCO Page [id number] at 1738 All edits/amendments must be made on the electronic document DICTATION DATE: 09/06/181737 EMERGENCY MEDCL EMT: ROBERT 09/06/181737 RPT#: [id number] DC DATE: STATUS: ADM IN [facility] [address] [place] [address] END OF REPORT
--- NOTE | 2018-09-06 17:46 | MORECARE ---
CASE MANAGEMENT DISCHARGE SUMMARY PATIENT: JAIRON TINOCO UNIT: [id number] ADM DATE: 09/03/18 AGE: 68 : 50 SEX: F ROOM/BED: D.2223 AUTHOR: JABIER,DOC PHYSICIAN: REFERRING PHYSICIAN: HUI ASHRAF MD DATE OF SERVICE: 09/06/18 Discharge Plan Patient Name: JAIRON TINOCO Facility: [facility]:[place] : 1950 Planned Disposition: Home Anticipated Discharge Date: Discharge Date: Expected LOS: Initial Reviewer: [email or web address] Initial Review Date: 09/06/2018 Generated: 09/06/18 6:45 pm Comments DCP- Discharge Planning Updated by [email or web address]: Sienna Gregorio on 09/06/18 4:[address] Patient Name: JAIRON TINOCO Admission Status: ER Accout number: [id number] Admission Date: 09-03-2018 : 1950 Admission Diagnosis:NAUSEA WITH VOMITING, UNSPECIFIED Attending: HUI ASHRAF Current LOS: 3 Anticipated DC Date: Planned Disposition: Home Primary Insurance: MEDICARE A & B Discharge Planning Comments: CM met with patient to complete initial dc planning assessment. CM educated patient on the CM role and verbal consent given by patient to complete assessment. Patient lives at home with her . At discharge patient plans to return and feels this is a safe discharge. CM discussed availability of home health, rehab services, and medical equipment. Patient denied known discharge needs at this time. States her will take her home on discharge. CM will continue to follow and will assist as needed with dc plans/needs. Rag Production Worker: Sienna Gregorio DCPIA - Discharge Planning Initial Assessment Updated by [id number]: Sienna Gregorio on 09/06/18 5:38 pm * Is the patient Alert and Oriented? Yes * PCP Dr. Mead * Pharmacy [facility] * Preadmission Environment Home with Family * ADLs Independent * Equipment Cane Walker * List name and contact numbers for known caregivers / representatives who currently or will assist patient after discharge: Jamie brantley - [phone] * Verbal permission to speak to the caregivers and representatives has been obtained from the patient. Yes * Community resources currently utilized None * Additional services required to return to the preadmission environment? No * Can the patient safely return to the preadmission environment? Yes * Has this patient been hospitalized within the prior 30 days at any hospital? No Last DP export: 09/06/18 4:38 p Patient Name: JAIRON TINOCO Page [id number] at 1746 All edits/amendments must be made on the electronic document DICTATION DATE: 09/06/181744 TAX ASSOCIATE: ROBERT 09/06/181744 RPT#: [id number] DC DATE: STATUS: ADM IN [facility] [address] [place] [address] END OF REPORT
--- NOTE | 2018-09-06 18:19 | NUR ---
I have reviewed this patient and I concur with the Shift Assessment completed by the Licensed Practical Nurse today this shift.
[2018-09-06 22:06] VITALS: BP 129/75
--- NOTE | 2018-09-07 03:05 | NUR ---
I have reviewed this patient and I concur with the Shift Assessment completed by the Licensed Practical Nurse today this shift.
[2018-09-07 04:35] VITALS: BP 124/70
[2018-09-07 04:48] LABS: BASOPHILS 0.1 % (0-2); EOSINOPHILS 0.7 % (0-7); HEMATOCRIT 32.4 % (36.0-48.0); HEMOGLOBIN 11.4 g/dL (12-16); IMMATURE GRANULOCYTES 0.2 % (0-5); LYMPHOCYTES 5.9 % (15-50); MCH 32.4 pg (26.0-34.0); MCHC 35.2 g/dL (31.0-37.0); MEAN PLATELET VOLUME 9.5 fL (7.4-10.4); MONOCYTES 9.2 % (2-11); NEUTROPHILS 83.9 % (40-80); PLATELET COUNT 329 10x3/uL (130-400); RBC 3.52 10x6/uL (4.00-5.40); RDW 14.1 % (11.5-14.5); WBC 13.8 10x3/uL (4.8-10.8)
[2018-09-07 05:03] LABS: CALCIUM 7.4 mg/dL (8.5-10.1); CARBON DIOXIDE 25.4 mmol/L (21.0-32.0); CHLORIDE - SERUM 98 mmol/L (98-107); GLUCOSE 105 mg/dL (74-106); SODIUM 131 mmol/L (136-145)
[2018-09-07 05:05] LABS: CALC OSMOLALITY 261 mosm/kg (275-300); CREATININE - SERUM 0.4 mg/dL (0.6-1.3); POTASSIUM - SERUM 3.1 mmol/L (3.5-5.1); UREA NITROGEN 10 mg/dL (7-18); eGFR NON AFRICAN AMERICAN > 90 mL/min (90-120)
[2018-09-07 09:25] VITALS: BP 132/76
--- NOTE | 2018-09-07 10:05 | NUR ---
PT AMBULATING IN ROOM WITH FAMILY AT BEDSIDE. NO ACUTE DISTRESS NOTED AT THIS TIME. REPORTS PAIN 3/10, BUT DENIES NEED FOR PAIN MEDICATIONS. IV TO LEFT FOREARM WITH NS @ 100ML/HR INFUSING VIA PUMP. SITE WITHOUT REDNESS OR EDEMA. DENIES FURTHER NEEDS AT THIS TIME. CL WITHIN REACH. ENCOURAGED TO CALL WITH NEEDS. CONTINUE POC
[2018-09-07 13:13] VITALS: BP 135/86
--- NOTE | 2018-09-07 13:17 | NUR ---
NUTRITION F/U PT UP IN ROOM. REG DIET WITH GOOD INTAKE LUNCH. WILL CONTINUE TO PROVIDE DIET, HONOR FOOD PREFERENCES. RD FOLLOWING
[2018-09-07 16:28] VITALS: BP 96/64
[2018-09-07] MEDS ORDERED: LEVAQUIN750 MG PO (16:57)
[2018-09-07] MEDS ORDERED: FLAGYL500 MG PO (16:58)
== END 2018-09-07 18:08 | disposition home or self-care (01) | DRG 389 ==
LOC: D.ER 11:57 → D.MS 16:53 → D.EDHOLD 16:53 → D.MS 18:26
PROVIDERS: Emergency Medicine; ADMIT Internal Medicine Nephrology; ATTEND Internal Medicine Nephrology
DX: K56.609 Unspecified intestinal obstruction, unspecified as to partial versus complete obstruction (principal); E87.1 Hypo-osmolality and hyponatremia; A09 Infectious gastroenteritis and colitis, unspecified; I10 Essential (primary) hypertension

== ENCOUNTER 2019-01-16 14:10 | Inpatient (IN) | payer MEDICARE, BC ==
[~2019-01-16] VITALS: Ht 160 cm; Wt 59.9 kg
[~2019-01-16 14:10] MED LIST changes: +FLAGYL500 MG PO; +LEVAQUIN750 MG PO
--- NOTE | 2019-01-16 14:51 | NUR ---
IV PLACED BY EMS
[2019-01-16 15:00] LABS: BASOPHILS 0.2 % (0-2); EOSINOPHILS 0.2 % (0-7); HEMATOCRIT 36.8 % (36.0-48.0); HEMOGLOBIN 13.1 g/dL (12-16); IMMATURE GRANULOCYTES 0.2 % (0-5); MCH 32.7 pg (26.0-34.0); MCHC 35.6 g/dL (31.0-37.0); MCV 91.8 fL (80.0-100.0); MEAN PLATELET VOLUME 9.2 fL (7.4-10.4); MONOCYTES 9.6 % (2-11); NEUTROPHILS 64.8 % (40-80); PLATELET COUNT 273 10x3/uL (130-400); RBC 4.01 10x6/uL (4.00-5.40); RDW 13.8 % (11.5-14.5); WBC 6.4 10x3/uL (4.8-10.8)
[2019-01-16 15:15] LABS: APPEARANCE CLEAR (CLEAR); BILIRUBIN NEGATIVE (NEGATIVE); COLOR YELLOW (YELLOW); GLUCOSE NEGATIVE (NEGATIVE); KETONE NEGATIVE (NEGATIVE); NITRITE NEGATIVE (NEGATIVE); PROTEIN NEGATIVE (NEGATIVE); UROBILINOGEN NORMAL (NORMAL)
[2019-01-16 15:15] LABS: ALBUMIN 4.1 g/dL (3.4-5.0); ALKALINE PHOSPHATASE 55 U/L (46-116); ALT (SGPT) 39 U/L (10-68); BILIRUBIN - TOTAL 0.32 mg/dL (0.2-1.3); CALC OSMOLALITY 260 mosm/kg (275-300); CALCIUM 8.9 mg/dL (8.5-10.1); CARBON DIOXIDE 26.8 mmol/L (21.0-32.0); CHLORIDE - SERUM 93 mmol/L (98-107); CREATININE - SERUM 0.6 mg/dL (0.6-1.3); GLUCOSE 120 mg/dL (74-106); POTASSIUM - SERUM 3.3 mmol/L (3.5-5.1); PROTEIN - SERUM 7.5 g/dL (6.4-8.2); SODIUM 130 mmol/L (136-145); UREA NITROGEN 11 mg/dL (7-18); eGFR NON AFRICAN AMERICAN > 90 mL/min (90-120)
[2019-01-16 15:25] LABS: LIPASE 185 U/L (73-393); MAGNESIUM - SERUM 1.8 mg/dL (1.8-2.4); PRO BNP 114 pg/mL (0-125); THYROID STIMULATING HORMONE 4.41 uIU/mL (0.36-3.74); TROPONIN-I < 0.017 ng/mL (0.000-0.060)
[2019-01-16 15:26] LABS: UDS - AMPHET NEGATIVE QUAL (NEGATIVE); UDS - BARB NEGATIVE QUAL (NEGATIVE); UDS - BENZO NEGATIVE QUAL (NEGATIVE); UDS - COCAINE NEGATIVE QUAL (NEGATIVE); UDS - OPIATE NEGATIVE QUAL (NEGATIVE); UDS - PCP NEGATIVE QUAL (NEGATIVE); UDS - THC NEGATIVE QUAL (NEGATIVE)
[2019-01-16 15:34] VITALS: BP 126/73
[2019-01-16 16:34] VITALS: BP 119/72
[2019-01-16 18:40] VITALS: BP 112/63
--- NOTE | 2019-01-16 19:12 | NUR ---
NG tube placed and attached to LIS. placement manually confirmed and confirmed by xray - moderate amount of clear mucous odorous return immediately noted. pt NG secure to right nare, Pt tolerated procedure well with no bleeding noted to nare.
--- NOTE | 2019-01-16 19:15 | NUR ---
report given to sarbjit juárez using sbar
[2019-01-16 20:57] VITALS: BP 120/70
--- NOTE | 2019-01-16 21:30 | NUR ---
RECIEVED TO FLOOR, ACCOMPANIED BY STAFF. A&O X 4. NG TUBE TO RIGHT NARE HOOKED UP TO LOW INTERMITTENT SUCTION. ADMITS TO 10/10 PAIN. AMBULATORY, BUT REPORTS WEAKNESS SINCE HOSPITALIZATION AND REQUESTS A WALKER. DENIES FURTHER NEEDS AT THIS TIME. WILL CONTINUE TO MONITOR.
[2019-01-17] VITALS (7 sets, daily range): BP systolic 110–149; BP diastolic 72–86; Ht 160 cm; Wt 59.9 kg
[2019-01-17 10:00] LABS: BASOPHILS 0.2 % (0-2); EOSINOPHILS 0 % (0-7); HEMATOCRIT 35.5 % (36.0-48.0); HEMOGLOBIN 12.6 g/dL (12-16); IMMATURE GRANULOCYTES 0.3 % (0-5); LYMPHOCYTES 8.2 % (15-50); MCH 32.6 pg (26.0-34.0); MCHC 35.5 g/dL (31.0-37.0); MCV 91.7 fL (80.0-100.0); MONOCYTES 6.5 % (2-11); NEUTROPHILS 84.8 % (40-80); PLATELET COUNT 275 10x3/uL (130-400); RBC 3.87 10x6/uL (4.00-5.40); RDW 13.9 % (11.5-14.5)
[2019-01-17 10:02] LABS: WBC 11.6 10x3/uL (4.8-10.8)
[2019-01-17 10:17] LABS: ALBUMIN 3.5 g/dL (3.4-5.0); ALKALINE PHOSPHATASE 54 U/L (46-116); ALT (SGPT) 34 U/L (10-68); BILIRUBIN - TOTAL 0.33 mg/dL (0.2-1.3); CALCIUM 7.8 mg/dL (8.5-10.1); CARBON DIOXIDE 30.8 mmol/L (21.0-32.0); CHLORIDE - SERUM 100 mmol/L (98-107); GLUCOSE 98 mg/dL (74-106); POTASSIUM - SERUM 3.1 mmol/L (3.5-5.1); PROTEIN - SERUM 6.6 g/dL (6.4-8.2); SODIUM 136 mmol/L (136-145)
[2019-01-17 10:18] LABS: CALC OSMOLALITY 268 mosm/kg (275-300); CREATININE - SERUM 0.4 mg/dL (0.6-1.3); UREA NITROGEN 4 mg/dL (7-18); eGFR NON AFRICAN AMERICAN > 90 mL/min (90-120)
--- NOTE | 2019-01-17 18:37 | NUR ---
PT RESTING IN BED, ALERT AND ORIENTED. NO C/O PAIN. NO S/S OF ACUTE DISTRESS NOTED. PT DENIES ANY NEEDS AT THIS TIME. CALL LIGHT IN REACH. WILL CONTINUE TO MONITOR.
--- NOTE | 2019-01-18 | NUR ---
NGT PLACED BY RN. AUSCULTATED FOR PLACEMENT. KUB ORDERED FOR PLACEMENT. WILL CONTINUE TO MONITOR.
[2019-01-18 00:47] VITALS: BP 154/80
--- NOTE | 2019-01-18 04:34 | NUR ---
I have reviewed this patient and I concur with the Shift Assessment completed by the Licensed Practical Nurse today this shift.
[2019-01-18 05:10] VITALS: BP 114/69
--- NOTE | 2019-01-18 07:15 | NUR ---
PT RESTING IN BED, ALERT AND ORIENTED. NO C/O PAIN. NO S/S OF ACUTE DISTRESS NOTED. PT DENIES ANY NEEDS AT THIS TIME. STILL NPO, NG TUBE TO RIGHT NARE ON L/I/S. CALL LIGHT IN REACH. WILL CONTINUE TO MONITOR.
[2019-01-18 07:24] LABS: BASOPHILS 0.1 % (0-2); EOSINOPHILS 0.1 % (0-7); HEMATOCRIT 33.8 % (36.0-48.0); HEMOGLOBIN 11.6 g/dL (12-16); IMMATURE GRANULOCYTES 0.3 % (0-5); LYMPHOCYTES 1.8 % (15-50); MCH 31.6 pg (26.0-34.0); MCHC 34.3 g/dL (31.0-37.0); MCV 92.1 fL (80.0-100.0); MEAN PLATELET VOLUME 9.8 fL (7.4-10.4); MONOCYTES 2.8 % (2-11); NEUTROPHILS 94.9 % (40-80); PLATELET COUNT 264 10x3/uL (130-400); RBC 3.67 10x6/uL (4.00-5.40); RDW 14.1 % (11.5-14.5); WBC 14.8 10x3/uL (4.8-10.8)
[2019-01-18 07:44] LABS: ALBUMIN 2.9 g/dL (3.4-5.0); ALKALINE PHOSPHATASE 46 U/L (46-116); ALT (SGPT) 27 U/L (10-68); BILIRUBIN - TOTAL 0.33 mg/dL (0.2-1.3); CALCIUM 7.2 mg/dL (8.5-10.1); CARBON DIOXIDE 29.1 mmol/L (21.0-32.0); CHLORIDE - SERUM 100 mmol/L (98-107); CREATININE - SERUM 0.5 mg/dL (0.6-1.3); GLUCOSE 97 mg/dL (74-106); SODIUM 135 mmol/L (136-145); eGFR NON AFRICAN AMERICAN > 90 mL/min (90-120)
[2019-01-18 07:47] LABS: CALC OSMOLALITY 269 mosm/kg (275-300); UREA NITROGEN 12 mg/dL (7-18)
[2019-01-18 07:55] LABS: POTASSIUM - SERUM 2.8 mmol/L (3.5-5.1)
[2019-01-18 08:20] VITALS: BP 105/63
[2019-01-18 10:07] LABS: MAGNESIUM - SERUM 1.7 mg/dL (1.8-2.4); PHOSPHOROUS 2.5 mg/dL (2.5-4.9)
[2019-01-18 13:08] VITALS: BP 142/72
--- NOTE | 2019-01-18 15:08 | NUR ---
I have reviewed this patient and I concur with the Shift Assessment completed by the Licensed Practical Nurse today this shift.
--- NOTE | 2019-01-18 20:00 | NUR ---
PT RESTING IN BED WITH EYES CLOSED, EASILY AROUSED. 3 LAP SITES NOTED TO LEFT SIDE OF THE ABDOMEN WITH BANDAIDS COVERING, CLEAN, DRY AND INTACT. IV LOCATED TO LEFT FOREARM WITH NS W/20K RUNNING AT 125ML/HR. BREATHING EVEN AND UNLABORED. DENIES ANY FURTHER NEEDS AT THIS TIME. BED LOW, CALL LIGHT IN REACH, RAILS UP X 2.
[2019-01-18 21:48] VITALS: BP 113/62
[2019-01-19 01:27] VITALS: BP 154/86
[2019-01-19 04:58] LABS: BASOPHILS 0 % (0-2); EOSINOPHILS 0.6 % (0-7); HEMATOCRIT 33.8 % (36.0-48.0); HEMOGLOBIN 11.6 g/dL (12-16); IMMATURE GRANULOCYTES 0.2 % (0-5); LYMPHOCYTES 5.6 % (15-50); MCH 32.3 pg (26.0-34.0); MCHC 34.3 g/dL (31.0-37.0); MEAN PLATELET VOLUME 9.7 fL (7.4-10.4); MONOCYTES 6.5 % (2-11); NEUTROPHILS 87.1 % (40-80); PLATELET COUNT 254 10x3/uL (130-400); RBC 3.59 10x6/uL (4.00-5.40); RDW 14.4 % (11.5-14.5)
[2019-01-19 05:12] LABS: MCV 94.2 fL (80.0-100.0); WBC 9.8 10x3/uL (4.8-10.8)
[2019-01-19 05:48] LABS: ALBUMIN 2.9 g/dL (3.4-5.0); ALKALINE PHOSPHATASE 49 U/L (46-116); ALT (SGPT) 31 U/L (10-68); BILIRUBIN - TOTAL 0.22 mg/dL (0.2-1.3); CALCIUM 7.2 mg/dL (8.5-10.1); CARBON DIOXIDE 24.3 mmol/L (21.0-32.0); CHLORIDE - SERUM 102 mmol/L (98-107); CREATININE - SERUM 0.4 mg/dL (0.6-1.3); GLUCOSE 92 mg/dL (74-106); POTASSIUM - SERUM 3.7 mmol/L (3.5-5.1); PROTEIN - SERUM 5.7 g/dL (6.4-8.2); SODIUM 135 mmol/L (136-145); eGFR NON AFRICAN AMERICAN > 90 mL/min (90-120)
[2019-01-19 05:49] LABS: CALC OSMOLALITY 266 mosm/kg (275-300); UREA NITROGEN 5 mg/dL (7-18)
[2019-01-19 06:07] VITALS: BP 147/77
--- NOTE | 2019-01-19 07:50 | NUR ---
ASSESSMENT PER FLOW SHEET. PT IS WITHOUT DISTRESS. DENIES NEEDS AT PRESENT.CALL LIGHT IN REACH
[2019-01-19 09:24] VITALS: BP 139/78
--- NOTE | 2019-01-19 10:07 | MORECARE ---
CASE MANAGEMENT DISCHARGE SUMMARY PATIENT: JAIRON TINOCO UNIT: [id number] ADM DATE: 01/16/19 AGE: 68 : 50 SEX: F ROOM/BED: D.2229 AUTHOR: JABIER,DOC PHYSICIAN: REFERRING PHYSICIAN: BEAR CHAIDEZ MD DATE OF SERVICE: 01/19/19 Discharge Plan Patient Name: JAIRON TINOCO Facility: [facility]:[place] : 1950 Planned Disposition: Home Anticipated Discharge Date: Discharge Date: Expected LOS: Initial Reviewer: [email or web address] Initial Review Date: 01/19/2019 Generated: 01/19/19 11:06 am Comments DCP- Discharge Planning Updated by [id number]: Sienna Gregorio on 01/19/19 9:[address] Patient Name: JAIRON TINOCO Admission Status: ER Accout number: [id number] Admission Date: 01-16-2019 : 1950 Admission Diagnosis: Attending: ARGELIA CHAIDEZ Current LOS: 3 Anticipated DC Date: Planned Disposition: Home Primary Insurance: MEDICARE A & B Discharge Planning Comments: CM met with patient to complete initial dc planning assessment. CM educated patient on the CM role and verbal consent given by patient to complete assessment. Patient lives at home with her . At discharge patient plans to return and feels this is a safe discharge. CM discussed availability of home health, rehab services, and medical equipment. Patient denied known discharge needs at this time. CM will continue to follow and will assist as needed with dc plans/needs. Top Spotter: Sienna Gregorio DCPIA - Discharge Planning Initial Assessment Updated by [id number]: Sienna Gregorio on 01/19/19 10:05 am * Is the patient Alert and Oriented? Yes * How many steps to enter\exit or inside your home? 0/0 * PCP Dr. Mead * Pharmacy [facility] the [facility] * Preadmission Environment Home with Family * ADLs Independent * Equipment Cane Walker * List name and contact numbers for known caregivers / representatives who currently or will assist patient after discharge: Jamie brantley - [phone] * Verbal permission to speak to the caregivers and representatives has been obtained from the patient. Yes * Community resources currently utilized None * Additional services required to return to the preadmission environment? Yes * Can the patient safely return to the preadmission environment? Yes * Has this patient been hospitalized within the prior 30 days at any hospital? No Patient Name: JAIRON TINOCO Page 65000 at 1007 All edits/amendments must be made on the electronic document DICTATION DATE: 01/19/19 100 COUTURIERE: ROBERT 01/19/19 1006 RPT#: [id number] DC DATE: STATUS: ADM IN [facility] [address] [place] [address] END OF REPORT
--- NOTE | 2019-01-19 12:15 | OP ---
PATIENT NAME: JAIRON TINOCO MEDICAL RECORD: [id number] :50 LOCATION:D.MS [id number] ADMISSION DATE:01/16/19 SURGEON: ANGEL ELDRIDGE MD DATE OF OPERATION: 01/18/2019 PREOPERATIVE DIAGNOSES: 1. Small bowel obstruction. 2. Hypertension. POSTOPERATIVE DIAGNOSES: 1. Small bowel obstruction. 2. Hypertension. PROCEDURE: Laparoscopic lysis of adhesions. SURGEON: Angel Eldridge MD REPORT OF PROCEDURE: The patient's abdomen was prepped and draped in sterile fashion. A Veress needle was inserted in the left upper quadrant and the abdomen was insufflated. A 5-mm Visiport trocar was then inserted in the left lateral abdomen. Upon doing this, we could see that the Veress needle did not penetrate completely into the abdominal cavity, but partially had caused insufflation of the preperitoneal space. Once in the abdominal cavity, we were able to insufflate the abdomen. As we inspected, we could see no evidence of any injury to bowel or surrounding structures. We found the terminal ileum and began to run the small bowel proximally. The small bowel appeared to be normal in caliber and there was no sign of an obstructive lesion. There was no scar tissue related to the small bowel and I was able to run it completely back to the ligament of Treitz without complication. The patient's colon was then inspected. We started at the rectum and the sigmoid colon. We were able to trace this back and could not see evidence of any mesenteric openings or scar tissue present. The left colon appeared normal. The transverse colon had some adhesions present, especially on the most proximal aspect and extending over to the ascending right colon. These adhesions were taken down using electrocautery. As we did this, we could see there was a pocket present, made from some adhesions near the patient's gallbladder. On the preoperative imaging studies, there was concern of a possible volvulus in the right upper quadrant near the gallbladder. I presume the bowel was probably sneaking into this opening near the gallbladder and getting stuck, causing the bowel obstructions. I took down all of the adhesions that were present using electrocautery with care taken not to damage the patient's gallbladder. Once these adhesions were completely freed up, then there were no further pockets present in the right upper quadrant and the remainder of the bowel rested easily in the abdominal cavity. We inspected one last time and could see no evidence of any succuss present. The ports and insufflation were then removed. A total of 10 mL of 0.25% Marcaine with epinephrine was infused into the surrounding incisions and the skin incisions were closed with subcutaneous 5-0 Monocryl. COMPLICATIONS: None. CONDITION: Stable. ANESTHESIA: General endotracheal and local. BLOOD LOSS: Minimal. OPERATIVE REPORT [id number] ALEJANDRINAHARVINDERJAIRON TRANSINT:[id number] Voice Confirmation ID: [id number] DOCUMENT ID: [id number] ANGEL ELDRIDGE MD at 1215 CC: ARGELIA CHAIDEZ [id number] DICTATION DATE: 01/18/19 1511 MANUFACTURING ENGINEER ASSEMBLY: 01/18/19 1848 ADM IN [facility] [address] [place] [address]
[2019-01-19 12:58] VITALS: BP 107/69
--- NOTE | 2019-01-19 13:00 | NUR ---
PT IS WITHOUT DISTRESS.MONITOR FOR NEEDS.CALL LIGHT IN REACH
--- NOTE | 2019-01-19 13:14 | NUR ---
Nutrition follow-up: s/p surgery Diet advanced to regular as tolerated today Labs reviewed Wt: 131# RDN following.
--- NOTE | 2019-01-19 14:00 | NUR ---
IV TENDER WITH SOME SWELLING. IV DCD WITH CATH TIP INTACT.PT REFUSES RESITE.
--- NOTE | 2019-01-19 14:35 | NUR ---
FAMILY AT BEDSIDE.PT IS WITHOUT DISTRESS.
[2019-01-19 16:32] VITALS: BP 91/55
--- NOTE | 2019-01-19 18:16 | NUR ---
HORMONE KATHERINE PER PT REQUEST
--- NOTE | 2019-01-19 19:15 | NUR ---
A&O X 4, SUPINE IN BED. CONTINUED REFUSAL OF NEW IV. REPORTS LAST BM WAS BEFORE ADMISSION. ENCOURAGED ORAL FLUIDS. WILL CONTINUE TO MONITOR.
[2019-01-19 20:43] VITALS: BP 90/50
[2019-01-20 00:52] VITALS: BP 102/66
[2019-01-20 04:48] VITALS: BP 131/78
--- NOTE | 2019-01-20 05:23 | NUR ---
I have reviewed this patient and I concur with the Shift Assessment completed by the Licensed Practical Nurse today this shift.
[2019-01-20 06:33] LABS: BASOPHILS 0 % (0-2); EOSINOPHILS 1.2 % (0-7); HEMATOCRIT 34.9 % (36.0-48.0); HEMOGLOBIN 12.2 g/dL (12-16); IMMATURE GRANULOCYTES 0.1 % (0-5); LYMPHOCYTES 9.7 % (15-50); MEAN PLATELET VOLUME 9.6 fL (7.4-10.4); PLATELET COUNT 240 10x3/uL (130-400); RBC 3.81 10x6/uL (4.00-5.40); RDW 13.8 % (11.5-14.5)
[2019-01-20 06:38] LABS: MCV 91.6 fL (80.0-100.0); WBC 6.9 10x3/uL (4.8-10.8)
[2019-01-20 06:50] LABS: ALBUMIN 2.7 g/dL (3.4-5.0); ALKALINE PHOSPHATASE 48 U/L (46-116); BILIRUBIN - TOTAL 0.27 mg/dL (0.2-1.3); CALC OSMOLALITY 262 mosm/kg (275-300); CALCIUM 7.3 mg/dL (8.5-10.1); CARBON DIOXIDE 25.1 mmol/L (21.0-32.0); CHLORIDE - SERUM 99 mmol/L (98-107); CREATININE - SERUM 0.4 mg/dL (0.6-1.3); GLUCOSE 109 mg/dL (74-106); PROTEIN - SERUM 6.1 g/dL (6.4-8.2); SODIUM 132 mmol/L (136-145); UREA NITROGEN 4 mg/dL (7-18); eGFR NON AFRICAN AMERICAN > 90 mL/min (90-120)
[2019-01-20 06:55] LABS: ALT (SGPT) 23 U/L (10-68)
[2019-01-20 08:58] VITALS: BP 113/62
--- NOTE | 2019-01-20 09:34 | NUR ---
PT ALERT X 4. BREATH SOUNDS CLEAR BILAT. BOWEL SOUNDS HYPOACTIVE TO ALL ENGLE, ABDOMEN DISTENDED AND TENDER. PT REPORTS NO BM IN OVER A WEEK, MEDICATED PER ORDERS, WILL MONITOR. NO IV ACCESS AT THIS TIME. BED LOW, CALL LIGHT IN REACH. NO OTHER NEEDS AT THIS TIME.
[2019-01-20 14:14] VITALS: BP 118/62
--- NOTE | 2019-01-20 17:10 | MORECARE ---
CASE MANAGEMENT DISCHARGE SUMMARY PATIENT: JAIRON TINOCO UNIT: [id number] ADM DATE: 01/16/19 AGE: 68 : 50 SEX: F ROOM/BED: D.2229 AUTHOR: JABIER,DOC PHYSICIAN: REFERRING PHYSICIAN: BEAR CHAIDEZ MD DATE OF SERVICE: 01/20/19 Discharge Plan Patient Name: JAIRON TINOCO Facility: [facility]:[place] : 1950 Planned Disposition: Home Anticipated Discharge Date: 01/20/19 Discharge Date: Expected LOS: 4 Initial Reviewer: [email or web address] Initial Review Date: 01/19/2019 Generated: 01/20/19 6:10 pm Comments DCP- Discharge Planning Updated by [id number]: Jessi Lobato on 01/20/19 4:[address] CM RECEIVED MD ORDER FOR CASE MANAGEMENT ASSESSMENT. THIS PATIENT WAS SEEN 01/19/19 PER DOCUMENTATION. CM REVISITED THE PATIENT. SHE IS A&O X4. EXPLAINED MY REVISIT. SHE STATES SHE WILL NOT NEED HOME HEALTH OR ANY SERVICES. SHE WILL HAVE TRANSPORTATION. SHE CAN OBTAIN HER MEDICATION. SHE UTILIZES [facility] [address]. SHE DENIES ANY NEED. CM EXPLAINED HOW TO OBTAIN SERVICES POST DISCHARGE IF SHE SHOULD CHANGE HER MIND. CM AVAIALBLE IF NEEDED. DCP- Discharge Planning Updated by [id number]: Sienna Gregorio on 01/19/19 9:[address] Patient Name: JAIRON TINOCO Admission Status: ER Accout number: [id number] Admission Date: 01-16-2019 : 1950 Admission Diagnosis: Attending: ARGELIA CHAIDEZ Current LOS: 3 Anticipated DC Date: Planned Disposition: Home Primary Insurance: MEDICARE A & B Discharge Planning Comments: CM met with patient to complete initial dc planning assessment. CM educated patient on the CM role and verbal consent given by patient to complete assessment. Patient lives at home with her . At discharge patient plans to return and feels this is a safe discharge. CM discussed availability of home health, rehab services, and medical equipment. Patient denied known discharge needs at this time. CM will continue to follow and will assist as needed with dc plans/needs. Scout Leaser: Sienna Gregorio DCPIA - Discharge Planning Initial Assessment Updated by [email or web address]: Sienna Gregorio on 01/19/19 10:05 am * Is the patient Alert and Oriented? Yes * How many steps to enter\exit or inside your home? 0/0 * PCP Dr. Mead * Pharmacy [facility] by the [facility] * Preadmission Environment Home with Family * ADLs Independent * Equipment Cane Walker * List name and contact numbers for known caregivers / representatives who currently or will assist patient after discharge: Jamie [facility] - [phone] * Verbal permission to speak to the caregivers and representatives has been obtained from the patient. Yes * Community resources currently utilized None * Additional services required to return to the preadmission environment? Yes * Can the patient safely return to the preadmission environment? Yes * Has this patient been hospitalized within the prior 30 days at any hospital? No Last DP export: 01/19/19 9:07 a Patient Name: JAIRON TINOCO Page 60490 at 1710 All edits/amendments must be made on the electronic document DICTATION DATE: 01/20/191709 RN CLINICAL RESOURCE: ROBERT 01/20/191709 RPT#: [id number] DC DATE: STATUS: ADM IN [facility] [address] [place] [address] END OF REPORT
[2019-01-20 17:27] VITALS: BP 120/63
--- NOTE | 2019-01-20 18:13 | NUR ---
CALLED SHANDRA KEEN ABOUT PT REPORTNG INDIGESTION. SHE ORDERED PROTONIX PO DAILY AND GIVE FIRST DOSE NOW.
--- NOTE | 2019-01-20 19:00 | NUR ---
REPORT RECEIVED AND CARE OF PT ASSUMED. PT LYING IN LOW IVY'S POSITION WITH EYES CLOSED AND EASY RESPIRATIONS. NO IV. WILL MONITOR FOR NEEDS.
[2019-01-20 20:18] VITALS: BP 110/59
--- NOTE | 2019-01-20 21:03 | NUR ---
HS MEDICATIONS GIVEN. MIXED MIRALAX WITH WATER. WILL CONTINUE TO MONITOR FOR NEEDS.
[2019-01-21 00:37] VITALS: BP 121/75
[2019-01-21 05:34] VITALS: BP 123/81
[2019-01-21 05:52] LABS: BASOPHILS 0.2 % (0-2); EOSINOPHILS 1.8 % (0-7); HEMATOCRIT 35.4 % (36.0-48.0); HEMOGLOBIN 12.4 g/dL (12-16); IMMATURE GRANULOCYTES 0.2 % (0-5); LYMPHOCYTES 19.7 % (15-50); MCV 91.5 fL (80.0-100.0); MEAN PLATELET VOLUME 9.5 fL (7.4-10.4); MONOCYTES 12.3 % (2-11); NEUTROPHILS 65.8 % (40-80); PLATELET COUNT 260 10x3/uL (130-400); RBC 3.87 10x6/uL (4.00-5.40); RDW 14.1 % (11.5-14.5)
[2019-01-21 05:55] LABS: WBC 4.9 10x3/uL (4.8-10.8)
[2019-01-21 06:13] LABS: ALBUMIN 2.9 g/dL (3.4-5.0); ALKALINE PHOSPHATASE 51 U/L (46-116); ALT (SGPT) 26 U/L (10-68); BILIRUBIN - TOTAL 0.36 mg/dL (0.2-1.3); CHLORIDE - SERUM 100 mmol/L (98-107); CREATININE - SERUM 0.3 mg/dL (0.6-1.3); GLUCOSE 100 mg/dL (74-106); PROTEIN - SERUM 6.6 g/dL (6.4-8.2); SODIUM 135 mmol/L (136-145); eGFR NON AFRICAN AMERICAN > 90 mL/min (90-120)
[2019-01-21 06:16] LABS: CALC OSMOLALITY 267 mosm/kg (275-300); POTASSIUM - SERUM 3.9 mmol/L (3.5-5.1); UREA NITROGEN 7 mg/dL (7-18)
[2019-01-21 08:30] VITALS: BP 131/63
[2019-01-21] MEDS ORDERED: PROTONIX40 MG PO (09:39)
[2019-01-21] MEDS ORDERED: HYDROCODON-ACE1 EAC7 PO (09:59)
--- NOTE | 2019-01-21 10:08 | NUR ---
PT ALERT X 4. BREATH SOUNDS CLEAR BILAT. ABDOMEN DISTENDED AND TENDER. NO IV ACCESS AT THIS TIME. PT REPORTING NO PAIN AT THIS TIME. BED LOW, CALL LIGHT IN REACH. NO OTHER NEEDS AT THIS TIME.
--- NOTE | 2019-01-21 10:32 | NUR ---
SPOKE WITH PT REGARDING REFERRAL TO TOBACCO QUITLINE. SHE DECLINES, STATES "I DON'T NEED IT".
--- NOTE | 2019-01-21 11:48 | NUR ---
DISCHARGE PAPERWORK SIGNED, ALL QUESTIONS ANSWERED. ESCORTED OUT BY WHEELCHAIR.
--- NOTE | 2019-01-22 07:34 | MORECARE ---
CASE MANAGEMENT DISCHARGE SUMMARY PATIENT: JAIRON TINOCO UNIT: [id number] ADM DATE: 01/16/19 AGE: 68 : 50 SEX: F ROOM/BED: D.2229 AUTHOR: JABIER,DOC PHYSICIAN: REFERRING PHYSICIAN: BEAR CHAIDEZ MD DATE OF SERVICE: 01/22/19 Discharge Plan Patient Name: JAIRON TINOCO Facility: [facility]:[place] : 1950 Planned Disposition: Home Anticipated Discharge Date: 01/20/19 Discharge Date: 01/21/2019 Expected LOS: 4 Initial Reviewer: [email or web address] Initial Review Date: 01/19/2019 Generated: 01/22/19 8:34 am Comments DCP- Discharge Planning Updated by [email or web address]: Jessi Lobato on 01/20/19 4:[address] CM RECEIVED MD ORDER FOR CASE MANAGEMENT ASSESSMENT. THIS PATIENT WAS SEEN 01/19/19 PER DOCUMENTATION. CM REVISITED THE PATIENT. SHE IS A&O X4. EXPLAINED MY REVISIT. SHE STATES SHE WILL NOT NEED HOME HEALTH OR ANY SERVICES. SHE WILL HAVE TRANSPORTATION. SHE CAN OBTAIN HER MEDICATION. SHE UTILIZES [facility] [address]. SHE DENIES ANY NEED. CM EXPLAINED HOW TO OBTAIN SERVICES POST DISCHARGE IF SHE SHOULD CHANGE HER MIND. CM AVAIALBLE IF NEEDED. DCP- Discharge Planning Updated by [email or web address]: Sienna Gregorio on 01/19/19 9:[address] Patient Name: JAIRON TINOCO Admission Status: ER Accout number: [id number] Admission Date: 01-16-2019 : 1950 Admission Diagnosis: Attending: ARGELIA CHAIDEZ Current LOS: 3 Anticipated DC Date: Planned Disposition: Home Primary Insurance: MEDICARE A & B Discharge Planning Comments: CM met with patient to complete initial dc planning assessment. CM educated patient on the CM role and verbal consent given by patient to complete assessment. Patient lives at home with her . At discharge patient plans to return and feels this is a safe discharge. CM discussed availability of home health, rehab services, and medical equipment. Patient denied known discharge needs at this time. CM will continue to follow and will assist as needed with dc plans/needs. Fox Raiser: Sienna Gregorio DCPIA - Discharge Planning Initial Assessment Updated by [email or web address]: Sienna Gregorio on 01/19/19 10:05 am * Is the patient Alert and Oriented? Yes * How many steps to enter\exit or inside your home? 0/0 * PCP Dr. Mead * Pharmacy [facility] by the [facility] * Preadmission Environment Home with Family * ADLs Independent * Equipment Cane Walker * List name and contact numbers for known caregivers / representatives who currently or will assist patient after discharge: Jamie [facility] - [phone] * Verbal permission to speak to the caregivers and representatives has been obtained from the patient. Yes * Community resources currently utilized None * Additional services required to return to the preadmission environment? Yes * Can the patient safely return to the preadmission environment? Yes * Has this patient been hospitalized within the prior 30 days at any hospital? No Last DP export: 01/20/19 4:10 p Patient Name: JAIRON TINOCO Page 77122 at 0734 All edits/amendments must be made on the electronic document DICTATION DATE: 01/22/1934 CONSTRUCTION MGR: ROBERT 01/22/1934 RPT#: [id number] DC DATE:01/21/19 STATUS: DIS IN [facility] [address] [place] [address] END OF REPORT
== END 2019-01-21 11:50 | disposition home or self-care (01) | DRG 336 ==
LOC: D.ER 14:10 → D.MS 17:01
PROVIDERS: Family Medicine; Surgery; ADMIT Emergency Medicine; ATTEND Emergency Medicine
PROC: 0DN84ZZ Release Small Intestine, Percutaneous Endoscopic Approach (ICD-10-PCS; principal; 2019-01-18 12:45)
DX: K56.2 Volvulus (principal); F17.213 Nicotine dependence, cigarettes, with withdrawal; E86.0 Dehydration; E87.6 Hypokalemia

== ENCOUNTER → 2019-03-28 07:40 | Outpatient (CLI) | payer MEDICARE, BC ==
[2019-01-17 13:49] VITALS: BMI 23.3
[~2019-03-28 07:40] MED LIST changes: +HYDROCODON-ACE1 EAC7 PO; +PROTONIX40 MG PO
== END | disposition home or self-care (01) ==
LOC: D.US 07:40 → D.CT 08:30
PROVIDERS: ATTEND Family Medicine
DX: I65.23 Occlusion and stenosis of bilateral carotid arteries (principal); E04.1 Nontoxic single thyroid nodule

== ENCOUNTER → 2019-04-17 10:12 | Outpatient (CLI) | payer MEDICARE, BC ==
[2019-01-17 13:49] VITALS: BMI 23.3
== END | disposition home or self-care (01) ==
LOC: D.US 10:12
PROVIDERS: ATTEND Otolaryngology
DX: E04.1 Nontoxic single thyroid nodule (principal)

== ENCOUNTER 2019-04-25 10:57 | Emergency (ER) | payer MEDICARE, BC ==
[~2019-04-25] VITALS: Ht 160 cm; Wt 56.4 kg
[2019-04-25 10:59] VITALS: Ht 160 cm; Wt 56.4 kg
[2019-04-25 11:30] LABS: BASOPHILS 0.3 % (0-2); EOSINOPHILS 0.1 % (0-7); HEMATOCRIT 39.6 % (36.0-48.0); HEMOGLOBIN 13.7 g/dL (12-16); IMMATURE GRANULOCYTES 0.3 % (0-5); LYMPHOCYTES 20.6 % (15-50); MCH 33.1 pg (26.0-34.0); MCHC 34.6 g/dL (31.0-37.0); MCV 95.7 fL (80.0-100.0); MEAN PLATELET VOLUME 9.3 fL (7.4-10.4); MONOCYTES 13.1 % (2-11); NEUTROPHILS 65.6 % (40-80); RBC 4.14 10x6/uL (4.00-5.40); RDW 14.6 % (11.5-14.5); WBC 6.9 10x3/uL (4.8-10.8)
[2019-04-25 11:42] LABS: CALC OSMOLALITY 257 mosm/kg (275-300); CALCIUM 9.3 mg/dL (8.5-10.1); CARBON DIOXIDE 26.1 mmol/L (21.0-32.0); CHLORIDE - SERUM 92 mmol/L (98-107); CREATININE - SERUM 0.4 mg/dL (0.6-1.3); GLUCOSE 107 mg/dL (74-106); PLATELET COUNT 357 10x3/uL (130-400); POTASSIUM - SERUM 3.9 mmol/L (3.5-5.1); SODIUM 129 mmol/L (136-145); UREA NITROGEN 9 mg/dL (7-18); eGFR NON AFRICAN AMERICAN > 90 mL/min (90-120)
[2019-04-25 11:46] LABS: APTT 32.9 SECONDS (22.8-39.4); INR 0.88 (0.85-1.17); PROTIME 11.4 SECONDS (11.6-15.0)
[2019-04-25 11:57] LABS: ALBUMIN 4.2 g/dL (3.4-5.0); ALKALINE PHOSPHATASE 63 U/L (46-116); ALT (SGPT) 27 U/L (10-68); BILIRUBIN - TOTAL 0.39 mg/dL (0.2-1.3); CKMB 0.3 U/L (0.0-3.6); CREATINE KINASE 65 UL (21-215); MAGNESIUM - SERUM 1.9 mg/dL (1.8-2.4); PROTEIN - SERUM 7.9 g/dL (6.4-8.2); THYROID STIMULATING HORMONE 1.75 uIU/mL (0.36-3.74); TROPONIN-I < 0.017 ng/mL (0.000-0.060)
[2019-04-25 14:45] VITALS: BP 130/82
== END 2019-04-25 14:58 | disposition other institution (70) ==
LOC: D.ER 10:57
PROVIDERS: Family Medicine
DX: I63.239 Cerebral infarction due to unspecified occlusion or stenosis of unspecified carotid artery (principal); F17.213 Nicotine dependence, cigarettes, with withdrawal; Z86.73 Personal history of transient ischemic attack (TIA), and cerebral infarction without residual deficits; E07.9 Disorder of thyroid, unspecified

== ENCOUNTER 2019-06-06 12:23 | Emergency (ER) | payer MEDICARE, BC ==
[~2019-06-06] VITALS: Ht 160 cm; Wt 56.4 kg
[2019-06-06 12:30] VITALS: Ht 160 cm; Wt 56.4 kg
[2019-06-06 15:30] VITALS: BP 120/76
== END 2019-06-06 15:42 | disposition home or self-care (01) ==
LOC: D.ER 12:23
DX: K59.00 Constipation, unspecified (principal); I63.9 Cerebral infarction, unspecified; I10 Essential (primary) hypertension; K56.609 Unspecified intestinal obstruction, unspecified as to partial versus complete obstruction

== ENCOUNTER 2019-11-17 20:02 | Inpatient (IN) | payer MEDICARE, BC ==
[~2019-11-17] VITALS: Ht 160 cm; Wt 56.7 kg
--- NOTE | 2019-11-17 19:45 | NUR ---
MACK CALLED AND GAVE ORDER TO TRANSFER TO ICU. STATED PATIENT HAS 80% MORTALITY RATE. SAYS PATIENT WAS DOING A BETTER AND IS NOW TAKING A TURN FOR THE WORST. 2 INCISIONS ON ABDOMEN ARE DRAINING AND INCISION FROM SAUL DRAIN. PATIENT HAS NAUSEA AND VOMITING.
[2019-11-17 20:23] LABS: BASOPHILS 0.1 % (0-2); EOSINOPHILS 0.5 % (0-7); HEMATOCRIT 35.8 % (36.0-48.0); IMMATURE GRANULOCYTES 0.5 % (0-5); LYMPHOCYTES 19.8 % (15-50); MCH 31.5 pg (26.0-34.0); MCHC 33.5 g/dL (31.0-37.0); MEAN PLATELET VOLUME 8.6 fL (7.4-10.4); MONOCYTES 7.5 % (2-11); NEUTROPHILS 71.6 % (40-80); RBC 3.81 10x6/uL (4.00-5.40); RDW 14.7 % (11.5-14.5); WBC 10.1 10x3/uL (4.8-10.8)
[2019-11-17 20:26] LABS: PLATELET COUNT 261 10x3/uL (130-400)
[2019-11-17 20:31] LABS: APTT 33.1 SECONDS (22.8-39.4); INR 0.91 (0.85-1.17); PROTIME 12.2 SECONDS (11.6-15.0)
[2019-11-17 20:34] LABS: CALC OSMOLALITY 248 mosm/kg (275-300); CALCIUM 9.5 mg/dL (8.5-10.1); CARBON DIOXIDE 23.3 mmol/L (21.0-32.0); CHLORIDE - SERUM 89 mmol/L (98-107); CREATININE - SERUM 0.8 mg/dL (0.6-1.3); GLUCOSE 109 mg/dL (74-106); POTASSIUM - SERUM 3.8 mmol/L (3.5-5.1); SODIUM 122 mmol/L (136-145); UREA NITROGEN 17 mg/dL (7-18); eGFR NON AFRICAN AMERICAN 75 mL/min (90-120)
[2019-11-17 20:50] LABS: ALBUMIN 3.8 g/dL (3.4-5.0); ALKALINE PHOSPHATASE 61 U/L (30-120); ALT (SGPT) 41 U/L (10-68); BILIRUBIN - TOTAL 0.42 mg/dL (0.2-1.3); CKMB 3.8 U/L (0.0-3.6); CREATINE KINASE 86 UL (21-215); MAGNESIUM - SERUM 1.5 mg/dL (1.8-2.4); PROTEIN - SERUM 7.2 g/dL (6.4-8.2); TROPONIN-I < 0.017 ng/mL (0.000-0.060)
--- NOTE | 2019-11-17 21:15 | NUR ---
PT AWAKE AND ALERT. PT CONTINUES TO DENY DIZZINESS. PT SON AT BEDSIDE
[2019-11-17 21:32] VITALS: BP 147/84
--- NOTE | 2019-11-17 22:15 | NUR ---
PT ASSISTED TO BEDSIDE COMMODE FOR URINE SAMPLE. PT UNABLE TO URINATE AT THIS TIME.
[2019-11-17 23:00] VITALS: BP 171/98
--- NOTE | 2019-11-17 23:00 | NUR ---
PT SITTING UPRIGHT ON BED. NO S/S OF ACUTE DISTRESS NOTED.
[2019-11-17 23:57] LABS: BILIRUBIN NEGATIVE (NEGATIVE); GLUCOSE NEGATIVE (NEGATIVE); KETONE NEGATIVE (NEGATIVE); NITRITE POSITIVE (NEGATIVE); UROBILINOGEN NORMAL (NORMAL)
[2019-11-18] VITALS (8 sets, daily range): BP systolic 97–164; BP diastolic 55–93
[2019-11-18 00:01] LABS: BACTERIA FEW /hpf (NEGATIVE); EPITHELIAL CELLS 0-5 /hpf (0-5); WHITE CELLS - URINE 0-5 /hpf (NEGATIVE)
--- NOTE | 2019-11-18 00:05 | NUR ---
PT FAMILY AT BEDSIDE. NO S/S OF ACUTE DISTRESS NOTED.
[2019-11-18 00:15] LABS: UDS - AMPHET NEGATIVE QUAL (NEGATIVE); UDS - BARB NEGATIVE QUAL (NEGATIVE); UDS - BENZO NEGATIVE QUAL (NEGATIVE); UDS - COCAINE NEGATIVE QUAL (NEGATIVE); UDS - OPIATE NEGATIVE QUAL (NEGATIVE); UDS - PCP NEGATIVE QUAL (NEGATIVE); UDS - THC NEGATIVE QUAL (NEGATIVE)
[2019-11-18 07:39] LABS: BASOPHILS 0.2 % (0-2); EOSINOPHILS 0.5 % (0-7); HEMATOCRIT 33.1 % (36.0-48.0); HEMOGLOBIN 11.4 g/dL (12-16); IMMATURE GRANULOCYTES 0.4 % (0-5); LYMPHOCYTES 14.3 % (15-50); MCH 31.8 pg (26.0-34.0); MCHC 34.4 g/dL (31.0-37.0); MCV 92.2 fL (80.0-100.0); MEAN PLATELET VOLUME 8.6 fL (7.4-10.4); MONOCYTES 8.8 % (2-11); NEUTROPHILS 75.8 % (40-80); PLATELET COUNT 291 10x3/uL (130-400); RBC 3.59 10x6/uL (4.00-5.40); RDW 14.6 % (11.5-14.5)
[2019-11-18 07:47] LABS: CALCIUM 8.4 mg/dL (8.5-10.1); CARBON DIOXIDE 26.3 mmol/L (21.0-32.0); CHLORIDE - SERUM 97 mmol/L (98-107); GLUCOSE 100 mg/dL (74-106); POTASSIUM - SERUM 3.8 mmol/L (3.5-5.1); SODIUM 130 mmol/L (136-145); UREA NITROGEN 10 mg/dL (7-18)
[2019-11-18 07:48] LABS: CALC OSMOLALITY 259 mosm/kg (275-300); CREATININE - SERUM 0.5 mg/dL (0.6-1.3); eGFR NON AFRICAN AMERICAN > 90 mL/min (90-120)
[2019-11-18 08:03] LABS: WBC 5.5 10x3/uL (4.8-10.8)
--- NOTE | 2019-11-18 08:03 | NUR ---
ALERT AND ORIENTED WITH PATIENT REMOVING N/G TUBE PER SELF GOING TO BATHROOM. N/G TUBE RELACED TO LEFT NARE PENDING PLACEMENT PER CXR. LUNGS CTA WITH TENDERNESS NOTED ON PALPATION TO LLQ ANTERIOR WITH BOWEL SOUNDS NOTED X4. SKIN INTACT. ENCOURAGED TO USE CALL LIGHT FOR ASSSIT.
--- NOTE | 2019-11-18 10:09 | NUR ---
PATIENT PLACED TO LOW INTERMITTANT SUCTIONS POST CONFIRMATION OF PLACEMENT FROM RADIOLOGIST.
--- NOTE | 2019-11-18 19:45 | NUR ---
PATIENT LYING IN BED. NO SIGNS OF ACTUE DISTRESS NOTED AT THIS TIME. ALERT AND ORIENTED. IV TO L WRIST, NS @125, NO SIGNS OF REDNESS OR SWELLING. NG TUBE TO RIGHT ADAMSE. PATIENT STATES SHE HAS NO NEEDS AT THIS TIME. BED RAILS X2. CALL LIGHT AND BEDSIDE TABLE WITHIN REACH.
[2019-11-19 00:51] VITALS: BP 127/68
[2019-11-19 04:00] VITALS: BP 129/76
--- NOTE | 2019-11-19 07:38 | NUR ---
PT RESTING PEACEFULLY, EYES CLOSED BREATHS EVEN REGULAR AND UNLABORED. NO SIGNS OR SYMPTOMS OF ACUTE DISTRESS NOTED AT THIS TIME. CL INR EACH, SRX2.
[2019-11-19 08:49] LABS: BASOPHILS 0.1 % (0-2); EOSINOPHILS 0.1 % (0-7); HEMATOCRIT 36.5 % (36.0-48.0); HEMOGLOBIN 12.2 g/dL (12-16); IMMATURE GRANULOCYTES 0.3 % (0-5); MCH 31.7 pg (26.0-34.0); MCHC 33.4 g/dL (31.0-37.0); MCV 94.8 fL (80.0-100.0); MEAN PLATELET VOLUME 8.5 fL (7.4-10.4); MONOCYTES 7.4 % (2-11); NEUTROPHILS 82.1 % (40-80); PLATELET COUNT 328 10x3/uL (130-400); RBC 3.85 10x6/uL (4.00-5.40); RDW 15.2 % (11.5-14.5); WBC 7.7 10x3/uL (4.8-10.8)
[2019-11-19 09:07] VITALS: BP 130/66
[2019-11-19 09:07] LABS: ALBUMIN 3.7 g/dL (3.4-5.0); ALKALINE PHOSPHATASE 56 U/L (30-120); ALT (SGPT) 36 U/L (10-68); BILIRUBIN - TOTAL 0.57 mg/dL (0.2-1.3); CALC OSMOLALITY 264 mosm/kg (275-300); CALCIUM 8.3 mg/dL (8.5-10.1); CARBON DIOXIDE 25.1 mmol/L (21.0-32.0); CHLORIDE - SERUM 99 mmol/L (98-107); CREATININE - SERUM 0.5 mg/dL (0.6-1.3); GLUCOSE 93 mg/dL (74-106); POTASSIUM - SERUM 3.7 mmol/L (3.5-5.1); PROTEIN - SERUM 6.5 g/dL (6.4-8.2); SODIUM 133 mmol/L (136-145); UREA NITROGEN 9 mg/dL (7-18); eGFR NON AFRICAN AMERICAN > 90 mL/min (90-120)
--- NOTE | 2019-11-19 09:29 | NUR ---
AT 830 RADIOLOGY CAME IN TO DO THE PTS SMALL BOWEL SERIES, STATED THIS LEELEE TAKE 2 HOURS. HOLDING MEDICATIONS UNTIL IT IS DONE. PT A/OX4, NO COMPLAITNS OR CONCERNS STATED AT THIS TIME. ALL QUESTIONS ANSWERED TO THE BEST OF MY ABILITY. CL IN REACH, RADIOLOGY STILL IN ROOM.
--- NOTE | 2019-11-19 11:43 | NUR ---
PT IS A/O, LYING IN BED. PAGED MUMTAZ CERVANTEST TO JAYESH PALACIO ABOUT HE LISINOPRIL PT STATES SHE DOESN'T TAKE AND TO CLARIFY WHETHER OR NOT I CAN REMOVE THE NG TUBE THE PTS SCANS CAME BACK NEGATIVE. WILL CNT. TO MONITOR, AT BEDSIDE. CL IN REACH, SRX2.
[2019-11-19 12:26] VITALS: BP 133/86
[2019-11-19 12:59] VITALS: Ht 160 cm; Wt 56.7 kg
--- NOTE | 2019-11-19 13:04 | NUR ---
PT ALERT AND ORIENTED, PROVIDED CHAP STICK. CHANGED TO CLEAR LIQUID DIET PER MD INSTRUCTION, ALSO REMOVED NG TUBE PER MD INSTRUCTION SMALL BOWEL SERIES WAS CLEAR. CL IN REACH, SRX2. WILL MONITOR.
--- NOTE | 2019-11-19 14:58 | NUR ---
PT AWAKE AND ORIENTED, TOLERATING CLEAR LIQUIDS AND NG TUBE REMOVAL WITHOUT DIFFICULTY. NO COMPLAINTS OR CONCERNS, CL IN REACH, SRX2, ALL QUESTIONS ANSWERD TO THE BEST OF MY ABILITY.
[2019-11-19 17:10] VITALS: BP 106/60
--- NOTE | 2019-11-19 20:00 | NUR ---
PATIENT LYING IN BED. ALERT AND ORIENTED. NO ACUTE DISTRESS NOTED AT THIS TIME. NG TUBE, LOW INT. SUCTION. IV TO L WRIST, BANANA BAG @125, NO REDNESS OR SWELLING NOTED. PATIENT STATES SHE HAS NO NEEDS AT THIS TIME. BED RAILS X2. BEDSIDE TABLE AND CALL LIGHT WITHIN REACH. WILL CONTINUE TO MONITOR.
[2019-11-19 20:45] VITALS: BP 106/61
[2019-11-20 05:15] LABS: BASOPHILS 0.4 % (0-2); HEMATOCRIT 36.6 % (36.0-48.0); HEMOGLOBIN 12.2 g/dL (12-16); IMMATURE GRANULOCYTES 0.4 % (0-5); LYMPHOCYTES 21.5 % (15-50); MCH 31.3 pg (26.0-34.0); MCHC 33.3 g/dL (31.0-37.0); MCV 93.8 fL (80.0-100.0); MEAN PLATELET VOLUME 8.5 fL (7.4-10.4); MONOCYTES 11.2 % (2-11); NEUTROPHILS 65.5 % (40-80); PLATELET COUNT 307 10x3/uL (130-400); RDW 15.2 % (11.5-14.5)
[2019-11-20 05:18] LABS: WBC 5.1 10x3/uL (4.8-10.8)
[2019-11-20 05:27] VITALS: BP 152/101
[2019-11-20 05:34] LABS: ALBUMIN 3.4 g/dL (3.4-5.0); ALKALINE PHOSPHATASE 57 U/L (30-120); ALT (SGPT) 29 U/L (10-68); BILIRUBIN - TOTAL 0.59 mg/dL (0.2-1.3); CALC OSMOLALITY 265 mosm/kg (275-300); CALCIUM 8.3 mg/dL (8.5-10.1); CARBON DIOXIDE 25.4 mmol/L (21.0-32.0); CHLORIDE - SERUM 99 mmol/L (98-107); CREATININE - SERUM 0.5 mg/dL (0.6-1.3); GLUCOSE 99 mg/dL (74-106); POTASSIUM - SERUM 3.6 mmol/L (3.5-5.1); PROTEIN - SERUM 6.7 g/dL (6.4-8.2); SODIUM 134 mmol/L (136-145); eGFR NON AFRICAN AMERICAN > 90 mL/min (90-120)
[2019-11-20 05:35] LABS: UREA NITROGEN 6 mg/dL (7-18)
--- NOTE | 2019-11-20 07:59 | NUR ---
ALERT AND ORIENTED. LUNGS CLEAR BILATERALLY. HEART SOUNDS S1 AND S2 HEARD IN ALL ENGLE. BOWEL SOUNDS ACTIVE X 4. SKIN INTACT WITHOUT REDNESS. DENIES PAIN. DENIES NEEDS. BED LOW. CALL BELTRE AND PERSONAL ITEMS IN REACH. WILL CONTINUE TO MONITOR.
[2019-11-20 08:08] VITALS: BP 115/78
--- NOTE | 2019-11-20 09:44 | NUR ---
PATIENT IV OUT. STATES DOES NOT WANT ANOTHER IV IF NOT NECESSARY. WILL TALK TO CARLA VAUGHN..
--- NOTE | 2019-11-20 12:19 | NUR ---
SPOKE WITH CARLA LIGHT AT DESK. STATES OK TO LEAVE OUT PATIENT'S IV. STATES PAGE DR GIRON TO SEE IF OK TO INCREASE DIET. STATES PATIENT NEEDS TO GET UP AND WALK WITH PT AND TOLERATE ADVANCING DIET. STATES ONCE THIS IS DONE IS OK WITH PATIENT DC LONG CLEAR WITH DR GIRON.
--- NOTE | 2019-11-20 12:20 | NUR ---
DR MACK GILLESPIE.
[2019-11-20 12:29] VITALS: BP 129/72
--- NOTE | 2019-11-20 14:37 | NUR ---
SPOKE WITH DR GIRON WHO STATES ADVANCE DIET TO REGULAR FOR DINNER AND IF PATIENT TOLERATES, OK TO DC IF OK WITH ADMITTING. SPOKE WITH CARLA LIGHT WHO STATES WILL PUT IN DC ORDER AND CAN DC AFTER TOLERATING REGULAR DINNER.
[2019-11-20] MEDS ORDERED: CATAPRES TTS-10.1 MG TRANSDERM (15:49)
[2019-11-20] MEDS ORDERED: LEVAQUIN750 MG PO (15:49)
--- NOTE | 2019-11-20 16:03 | NUR ---
PATIENT REQUESTING REGULAR FOOD. NO SANDWICH TRAYS IN [place]. SPOKE WITH MELI IN DIETARY WHO STATES DOES NOT HAVE ANYONE WHO CAN BRING PATIENT FOOD.
--- NOTE | 2019-11-20 16:24 | MORECARE ---
CASE MANAGEMENT DISCHARGE SUMMARY PATIENT: JAIRON TINOCO UNIT: [id number] ADM DATE: 11/17/19 AGE: 69 : 50 SEX: F ROOM/BED: D.2229 AUTHOR: JABIER,DOC PHYSICIAN: REFERRING PHYSICIAN: HUI ASHRAF MD DATE OF SERVICE: 11/20/19 Discharge Plan Patient Name: JAIRON TINOCO Facility: [facility]:[place] : 1950 Planned Disposition: Anticipated Discharge Date: Discharge Date: Expected LOS: Initial Reviewer: [email or web address] Initial Review Date: 11/20/2019 Generated: 11/20/19 5:23 pm Comments DCP- Discharge Planning Updated by [id number]: Madiha Handley on 11/20/19 3:[address] Patient Name: JAIRON TINOCO Admission Status: ER Accout number: [id number] Admission Date: 11-17-2019 : 1950 Admission Diagnosis: Attending: HUI ASHRAF Current LOS: 3 Anticipated DC Date: Planned Disposition: Primary Insurance: MEDICARE A & B Discharge Planning Comments: CM met with patient at bedside after explaining CM role and obtaining verbal consent. CM discussed availability / needs of home health, REHAB and medical equipment. PATIENT DENIES ANY DISCHARGE NEEDS. IMM SIGNED. Repairer Wood Furniture: Madiha Handley DCPIA - Discharge Planning Initial Assessment Updated by [email or web address]: Madiha Handley on 11/20/19 4:23 pm * Is the patient Alert and Oriented? Yes * PCP RAMY * Pharmacy [facility] * Preadmission Environment Home with Family * ADLs Independent * Other Equipment CANE * Community resources currently utilized None * Additional services required to return to the preadmission environment? No * Can the patient safely return to the preadmission environment? Yes * Has this patient been hospitalized within the prior 30 days at any hospital? No Coverage Notice Reviewer: [id number] - Madiha aHndley Notice Issued Date-Time: 11/20/2019 16:21 Notice Type: IM Discharge Notice Notice Delivered To: Relationship to Patient: Cardiology Specialist Name: Delivery Method: HAND - Hand Delivered Haylee Days: Prior Verbal Notification: Recipient Understood Notice: Yes Recipient Signature: Yes Med Rec Note Co-signed by Attending: Coverage Notice Comment: Patient Name: JAIRON TINOCO Page 43817 at 1624 All edits/amendments must be made on the electronic document DICTATION DATE: 11/20/191622 HEMMER CHAINSTITCH: ROBERT 11/20/191622 RPT#: [id number] DC DATE: STATUS: ADM IN [facility] [address] [place] [address] END OF REPORT
--- NOTE | 2019-11-20 17:38 | NUR ---
PATIENT TOLERATED REGULAR DIET FOR DINNER. DC EDUCATION PROVIDED BOTH WRITTEN AND VERBAL. VERBALIZED UNDERSTANDING. DENIES FURTHER QUESTIONS. NO IV TO REMOVE. TELEMETRY REMOVED AND RETURNED TO [facility]. PATIENT DC HOME WITH SON WITH ALL BELONGINGS.
[2019-11-20 17:47] VITALS: BP 145/67
--- NOTE | 2019-11-21 08:38 | MORECARE ---
CASE MANAGEMENT DISCHARGE SUMMARY PATIENT: JAIRON TINOCO UNIT: [id number] ADM DATE: 11/17/19 AGE: 69 : 50 SEX: F ROOM/BED: D.2229 AUTHOR: JABIER,DOC PHYSICIAN: REFERRING PHYSICIAN: HUI ASHRAF MD DATE OF SERVICE: 11/21/19 Discharge Plan Patient Name: JAIRON TINOCO Facility: [facility]:[place] : 1950 Planned Disposition: Anticipated Discharge Date: Discharge Date: 11/20/2019 Expected LOS: Initial Reviewer: [email or web address] Initial Review Date: 11/20/2019 Generated: 11/21/19 9:38 am Comments DCP- Discharge Planning Updated by [email or web address]: Madiha Handley on 11/20/19 3:[address] Patient Name: JAIRON TINOCO Admission Status: ER Accout number: [id number] Admission Date: 11-17-2019 : 1950 Admission Diagnosis: Attending: HUI ASHRAF Current LOS: 3 Anticipated DC Date: Planned Disposition: Primary Insurance: MEDICARE A & B Discharge Planning Comments: CM met with patient at bedside after explaining CM role and obtaining verbal consent. CM discussed availability / needs of home health, REHAB and medical equipment. PATIENT DENIES ANY DISCHARGE NEEDS. IMM SIGNED. Loan Broker: Madiha Handley DCPIA - Discharge Planning Initial Assessment Updated by [email or web address]: Madiha Handley on 11/20/19 4:23 pm * Is the patient Alert and Oriented? Yes * PCP RAMY * [facility] * Preadmission Environment Home with Family * ADLs Independent * Other Equipment CANE * Community resources currently utilized None * Additional services required to return to the preadmission environment? No * Can the patient safely return to the preadmission environment? Yes * Has this patient been hospitalized within the prior 30 days at any hospital? No Coverage Notice Reviewer: [id number] - Madiha Handley Notice Issued Date-Time: 11/20/2019 16:21 Notice Type: IM Discharge Notice Notice Delivered To: Relationship to Patient: Pressure Tank Operator Name: Delivery Method: HAND - Hand Delivered Haylee Days: Prior Verbal Notification: Recipient Understood Notice: Yes Recipient Signature: Yes Med Rec Note Co-signed by Attending: Coverage Notice Comment: Last DP export: 11/20/19 3:24 p Patient Name: JAIRON TINOCO Page 15150 at 0838 All edits/amendments must be made on the electronic document DICTATION DATE: 11/21/19837 EXCHANGE SPECIALIST: ROBERT 11/21/19837 RPT#: [id number] DC DATE:11/20/19 STATUS: DIS IN [facility] [address] [place] [address] END OF REPORT
== END 2019-11-20 17:57 | disposition home or self-care (01) | DRG 389 ==
LOC: D.ER 20:02 → D.MS 23:51
PROVIDERS: Emergency Medicine; ADMIT Internal Medicine Nephrology; ATTEND Internal Medicine Nephrology
DX: K56.600 Partial intestinal obstruction, unspecified as to cause (principal); N39.0 Urinary tract infection, site not specified; F17.203 Nicotine dependence unspecified, with withdrawal; K56.7 Ileus, unspecified; I10 Essential (primary) hypertension; F10.10 Alcohol abuse, uncomplicated; Z86.73 Personal history of transient ischemic attack (TIA), and cerebral infarction without residual deficits

== ENCOUNTER 2020-02-13 08:57 | Inpatient (IN) | payer MEDICARE, BC ==
[2020-02-13] VITALS (7 sets, daily range): BP systolic 82–163; BP diastolic 54–94; BMI 21.3
[~2020-02-13] VITALS: Ht 162.6 cm; Wt 56.2 kg
[~2020-02-13 08:57] MED LIST changes: +CATAPRES TTS-10.1 MG TRANSDERM
[2020-02-13 09:36] LABS: BASOPHILS 0.1 % (0-2); EOSINOPHILS 0.1 % (0-7); HEMATOCRIT 41.4 % (36.0-48.0); HEMOGLOBIN 14.9 g/dL (12-16); IMMATURE GRANULOCYTES 0.6 % (0-5); LYMPHOCYTES 4.4 % (15-50); MCH 32.3 pg (26.0-34.0); MCV 89.8 fL (80.0-100.0); MEAN PLATELET VOLUME 8.7 fL (7.4-10.4); MONOCYTES 4.5 % (2-11); NEUTROPHILS 90.3 % (40-80); PLATELET COUNT 311 10x3/uL (130-400); RBC 4.61 10x6/uL (4.00-5.40); RDW 12.7 % (11.5-14.5); WBC 16.2 10x3/uL (4.8-10.8)
[2020-02-13 10:06] LABS: ALBUMIN 4.9 g/dL (3.4-5.0); ALKALINE PHOSPHATASE 82 U/L (30-120); ALT (SGPT) 46 U/L (10-68); AMYLASE - SERUM 78 U/L (25-115); BILIRUBIN - TOTAL 0.45 mg/dL (0.2-1.3); CARBON DIOXIDE 29.3 mmol/L (21.0-32.0); CREATININE - SERUM 1.2 mg/dL (0.6-1.3); GLUCOSE 136 mg/dL (74-106); LIPASE 191 U/L (73-393); PROTEIN - SERUM 8.4 g/dL (6.4-8.2); TROPONIN-I < 0.017 ng/mL (0.000-0.060); UREA NITROGEN 15 mg/dL (7-18); eGFR NON AFRICAN AMERICAN 47 mL/min (90-120)
[2020-02-13 10:12] LABS: CALC OSMOLALITY 235 mosm/kg (275-300)
[2020-02-13 10:13] LABS: CHLORIDE - SERUM 77 mmol/L (98-107); SODIUM 115 mmol/L (136-145)
--- NOTE | 2020-02-13 12:15 | NUR ---
IV INFILTRATED WHILE IN CT. DIFFICULT ACCESS REQUIRING MULTIPLE ATTEMPTS FOR ACCESS.
--- NOTE | 2020-02-13 14:31 | NUR ---
ARRIVES TO UNIT PER STRETCHER, IV INFUSING, NO DISTRESS NOTED
[2020-02-13] MEDS ORDERED: ALDACTONE25 MG PO (15:00)
[2020-02-13 17:16] LABS: CALCIUM 7.9 mg/dL (8.5-10.1); CARBON DIOXIDE 23.8 mmol/L (21.0-32.0); GLUCOSE 136 mg/dL (74-106); POTASSIUM - SERUM 3.8 mmol/L (3.5-5.1); UREA NITROGEN 14 mg/dL (7-18)
[2020-02-13 17:20] LABS: CALC OSMOLALITY 239 mosm/kg (275-300); CREATININE - SERUM 0.8 mg/dL (0.6-1.3); eGFR NON AFRICAN AMERICAN 75 mL/min (90-120)
[2020-02-13 17:24] LABS: CHLORIDE - SERUM 84 mmol/L (98-107); SODIUM 117 mmol/L (136-145)
--- NOTE | 2020-02-13 17:31 | NUR ---
CALLED WITH CRITICAL NA AND CL BUT THESE ARE IMPROVED SINCE ADMISSION
--- NOTE | 2020-02-13 18:15 | NUR ---
PRAJAPATI INSERTED UNDER MEDIA RELATIONS MANAGER, RYLAN WELL, RETURNED 500CC LT YELLOW URINE, CONT TO MONITOR, SPEC SENT TO LAB
--- NOTE | 2020-02-13 18:15 | NUR ---
PRAJAPATI PLACED, RYLAN WELL, GOOD RETURN OF LT YELLOW URINE
--- NOTE | 2020-02-13 19:30 | NUR ---
A&O X 4. DENIES N/V/D FOR 24 HOURS. NO PAIN, CTM.
[2020-02-13 23:21] LABS: BILIRUBIN NEGATIVE (NEGATIVE); GLUCOSE NEGATIVE (NEGATIVE); KETONE NEGATIVE (NEGATIVE); NITRITE NEGATIVE (NEGATIVE); UROBILINOGEN NORMAL (NORMAL)
[2020-02-13 23:22] LABS: BACTERIA FEW /hpf (NEGATIVE); EPITHELIAL CELLS 0-5 /hpf (0-5); RED CELLS - URINE 0-5 /hpf (0-5); WHITE CELLS - URINE 0-5 /hpf (NEGATIVE)
[2020-02-14 04:00] VITALS: BP 98/59
--- NOTE | 2020-02-14 05:21 | NUR ---
I have reviewed this patient and I concur with the Shift Assessment completed by the Licensed Practical Nurse today this shift.
[2020-02-14 06:56] LABS: ALKALINE PHOSPHATASE 59 U/L (30-120); BILIRUBIN - TOTAL 0.37 mg/dL (0.2-1.3); CALCIUM 8.3 mg/dL (8.5-10.1); CHLORIDE - SERUM 90 mmol/L (98-107); CREATININE - SERUM 0.6 mg/dL (0.6-1.3); GLUCOSE 106 mg/dL (74-106); PHOSPHOROUS 2.1 mg/dL (2.5-4.9); POTASSIUM - SERUM 3.5 mmol/L (3.5-5.1); PROTEIN - SERUM 6.8 g/dL (6.4-8.2); SODIUM 122 mmol/L (136-145); eGFR NON AFRICAN AMERICAN > 90 mL/min (90-120)
[2020-02-14 06:57] LABS: ALBUMIN 3.5 g/dL (3.4-5.0); ALT (SGPT) 32 U/L (10-68); CALC OSMOLALITY 243 mosm/kg (275-300); UREA NITROGEN 8 mg/dL (7-18)
[2020-02-14 07:02] LABS: BASOPHILS 0.1 % (0-2); EOSINOPHILS 0.3 % (0-7); IMMATURE GRANULOCYTES 0.1 % (0-5); LYMPHOCYTES 9.4 % (15-50); MCHC 35.3 g/dL (31.0-37.0); MCV 90.7 fL (80.0-100.0); MEAN PLATELET VOLUME 9.1 fL (7.4-10.4); MONOCYTES 8.2 % (2-11); NEUTROPHILS 81.9 % (40-80); PLATELET COUNT 332 10x3/uL (130-400); RBC 3.75 10x6/uL (4.00-5.40); RDW 12.9 % (11.5-14.5)
--- NOTE | 2020-02-14 08:37 | NUR ---
SHE IS ALERT, TALKING. DENIES ANY N/V. THE CALL LIGHT IS WITHIN REACH. SHE USES A CANE WHEN GOING TO THE BATHROOM.
[2020-02-14 09:48] VITALS: BP 103/70
[2020-02-14 12:34] VITALS: Ht 162.6 cm; Wt 56.2 kg
[2020-02-14 12:58] VITALS: BP 114/67
[2020-02-14 17:23] VITALS: BP 113/86
--- NOTE | 2020-02-14 17:26 | NUR ---
NEW IV STARTED 22 G TO THE LEFT ARM. THE CALL LIGHT IS WITHIN REACH.
[2020-02-14 20:00] VITALS: BP 114/60
[2020-02-15] VITALS: BP 116/65
--- NOTE | 2020-02-15 02:20 | NUR ---
PATIENT IS RESTING IN BED WITH NO NEEDS AT THIS TIME. CALL LIGHT IN REACH BED LOW.
[2020-02-15 04:00] VITALS: BP 116/74
[2020-02-15 04:42] LABS: BASOPHILS 0.3 % (0-2); EOSINOPHILS 0.5 % (0-7); HEMATOCRIT 32.3 % (36.0-48.0); HEMOGLOBIN 11.2 g/dL (12-16); IMMATURE GRANULOCYTES 0.1 % (0-5); LYMPHOCYTES 17.3 % (15-50); MCH 31.9 pg (26.0-34.0); MCHC 34.7 g/dL (31.0-37.0); MONOCYTES 11.6 % (2-11); NEUTROPHILS 70.2 % (40-80); PLATELET COUNT 299 10x3/uL (130-400); RBC 3.51 10x6/uL (4.00-5.40); RDW 13.1 % (11.5-14.5); WBC 7.5 10x3/uL (4.8-10.8)
[2020-02-15 05:10] LABS: ALKALINE PHOSPHATASE 54 U/L (30-120); ALT (SGPT) 29 U/L (10-68); CALC OSMOLALITY 252 mosm/kg (275-300); CALCIUM 8.1 mg/dL (8.5-10.1); CARBON DIOXIDE 27.8 mmol/L (21.0-32.0); CHLORIDE - SERUM 95 mmol/L (98-107); CREATININE - SERUM 0.5 mg/dL (0.6-1.3); GLUCOSE 99 mg/dL (74-106); POTASSIUM - SERUM 3.6 mmol/L (3.5-5.1); PROTEIN - SERUM 5.9 g/dL (6.4-8.2); SODIUM 127 mmol/L (136-145); UREA NITROGEN 7 mg/dL (7-18); eGFR NON AFRICAN AMERICAN > 90 mL/min (90-120)
--- NOTE | 2020-02-15 07:43 | NUR ---
RECEIVED PT FROM INSURANCE PROFESSIONAL. UPRIGHT IN BED UPON ENETERING. AAO X4, DENIES ANY NEEDS. BED IN LOWEST POSITION, BED RAILS X2, CALL LIGHT WITHIN REACH. WILL CONTINUE TO MONITOR.
[2020-02-15 09:17] VITALS: BP 127/80
--- NOTE | 2020-02-15 09:25 | NUR ---
ADMINISTERED PT MEDICATION AT THIS TIME. UPRIGHT IN BED EATING BREAKFAST. NO DIFFICULTIES. DENIES ANY NEEDS. WILL CONTINUE TO MONITOR.
[2020-02-15 12:53] VITALS: BP 121/70
--- NOTE | 2020-02-15 15:19 | NUR ---
I have reviewed this patient and I concur with the Shift Assessment completed by the Licensed Practical Nurse today this shift.
[2020-02-15 17:11] VITALS: BP 110/62
--- NOTE | 2020-02-16 03:00 | NUR ---
I have reviewed this patient and I concur with the Shift Assessment completed by the Licensed Practical Nurse today this shift.
[2020-02-16 04:00] VITALS: BP 120/74
[2020-02-16 06:19] LABS: BASOPHILS 0.3 % (0-2); EOSINOPHILS 1.8 % (0-7); HEMATOCRIT 34.5 % (36.0-48.0); HEMOGLOBIN 11.5 g/dL (12-16); IMMATURE GRANULOCYTES 0.3 % (0-5); LYMPHOCYTES 18.8 % (15-50); MCH 31.6 pg (26.0-34.0); MCHC 33.3 g/dL (31.0-37.0); MEAN PLATELET VOLUME 9.1 fL (7.4-10.4); MONOCYTES 10.9 % (2-11); NEUTROPHILS 67.9 % (40-80); PLATELET COUNT 290 10x3/uL (130-400); RBC 3.64 10x6/uL (4.00-5.40); RDW 13.3 % (11.5-14.5); WBC 6.7 10x3/uL (4.8-10.8)
[2020-02-16 06:25] LABS: MCV 94.8 fL (80.0-100.0)
[2020-02-16 09:30] VITALS: BP 155/91
[2020-02-16 09:46] LABS: ALBUMIN 3.1 g/dL (3.4-5.0); ALKALINE PHOSPHATASE 72 U/L (30-120); ALT (SGPT) 34 U/L (10-68); BILIRUBIN - TOTAL 0.26 mg/dL (0.2-1.3); CALC OSMOLALITY 253 mosm/kg (275-300); CALCIUM 7.8 mg/dL (8.5-10.1); CARBON DIOXIDE 23.8 mmol/L (21.0-32.0); CHLORIDE - SERUM 98 mmol/L (98-107); CREATININE - SERUM 0.4 mg/dL (0.6-1.3); GLUCOSE 84 mg/dL (74-106); POTASSIUM - SERUM 4.1 mmol/L (3.5-5.1); PROTEIN - SERUM 5.6 g/dL (6.4-8.2); SODIUM 128 mmol/L (136-145); UREA NITROGEN 8 mg/dL (7-18); eGFR NON AFRICAN AMERICAN > 90 mL/min (90-120)
[2020-02-16 13:23] VITALS: BP 186/95
[2020-02-16 16:23] VITALS: BP 108/60
[2020-02-16 20:00] VITALS: BP 109/77
[2020-02-17 00:10] VITALS: BP 135/82
--- NOTE | 2020-02-17 02:36 | NUR ---
I have reviewed this patient and I concur with the Shift Assessment completed by the Licensed Practical Nurse today this shift.
[2020-02-17 04:30] VITALS: BP 119/83
[2020-02-17 05:45] LABS: BASOPHILS 0.2 % (0-2); EOSINOPHILS 0.7 % (0-7); HEMATOCRIT 35.5 % (36.0-48.0); IMMATURE GRANULOCYTES 0.1 % (0-5); LYMPHOCYTES 17.6 % (15-50); MCH 31.7 pg (26.0-34.0); MCHC 33.8 g/dL (31.0-37.0); MCV 93.7 fL (80.0-100.0); NEUTROPHILS 69.4 % (40-80); PLATELET COUNT 284 10x3/uL (130-400); RBC 3.79 10x6/uL (4.00-5.40); RDW 13.3 % (11.5-14.5); WBC 9.1 10x3/uL (4.8-10.8)
[2020-02-17 06:00] LABS: ALBUMIN 3.1 g/dL (3.4-5.0); ALKALINE PHOSPHATASE 76 U/L (30-120); ALT (SGPT) 32 U/L (10-68); BILIRUBIN - TOTAL 0.28 mg/dL (0.2-1.3); CALC OSMOLALITY 263 mosm/kg (275-300); CALCIUM 8.4 mg/dL (8.5-10.1); CARBON DIOXIDE 27.6 mmol/L (21.0-32.0); CHLORIDE - SERUM 97 mmol/L (98-107); CREATININE - SERUM 0.5 mg/dL (0.6-1.3); GLUCOSE 96 mg/dL (74-106); POTASSIUM - SERUM 3.6 mmol/L (3.5-5.1); PROTEIN - SERUM 6.2 g/dL (6.4-8.2); SODIUM 132 mmol/L (136-145); UREA NITROGEN 10 mg/dL (7-18); eGFR NON AFRICAN AMERICAN > 90 mL/min (90-120)
[2020-02-17 09:49] VITALS: BP 113/75
[2020-02-17] MEDS ORDERED: VITAMIN B-1100 M1 PO (11:42)
[2020-02-17] MEDS ORDERED: FOLIC ACID1 MG PO (11:42)
[2020-02-17] MEDS ORDERED: THERAGRAN M [BK1 TAB PO (11:42)
[2020-02-17] MEDS ORDERED: THERMOTABS 1 GM1 GM PO (11:43)
--- NOTE | 2020-02-17 11:56 | NUR ---
PT ALERT X 4. BREATH SOUNDS CLEAR BILAT. IV TO LEFT FOREARM, SALINE LOCKED. PT REPORTING NO PAIN TODAY. SHE IS WANTING TO DISCHARGE HOME. BED LOW, CALL LIGHT IN REACH. NO OTHER NEEDS AT THIS TIME.
[2020-02-17 12:15] VITALS: BP 94/47
--- NOTE | 2020-02-17 12:53 | MORECARE ---
CASE MANAGEMENT DISCHARGE SUMMARY PATIENT: JAIRON TINOCO UNIT: [id number] ADM DATE: 02/13/20 AGE: 69 : 50 SEX: F ROOM/BED: D.2204 AUTHOR: LISA EUGENE PHYSICIAN: REFERRING PHYSICIAN: ZAHRA KENNEY MD DATE OF SERVICE: 02/17/20 Discharge Plan Patient Name: JAIRON TINOCO Facility: [facility]:[place] : 1950 Planned Disposition: Anticipated Discharge Date: Discharge Date: Expected LOS: Initial Reviewer: [email or web address] Initial Review Date: 02/13/2020 Generated: 02/17/20 1:52 pm Patient Name: JAIRON TINOCO Page [id number] at 1253 All edits/amendments must be made on the electronic document DICTATION DATE: 02/17/20 1252 WIRE HARNESS ASSEMBLER: ROBERT 02/17/20 1252 RPT#: [id number] DC DATE: STATUS: ADM IN [facility] [address] [place] [address] END OF REPORT
--- NOTE | 2020-02-17 13:00 | MORECARE ---
CASE MANAGEMENT DISCHARGE SUMMARY PATIENT: JAIRON LINN UNIT: [id number] ADM DATE: 02/13/20 AGE: 69 : 50 SEX: F ROOM/BED: D.2204 AUTHOR: JABIERDOC PHYSICIAN: REFERRING PHYSICIAN: ZAHRA KENNEY MD DATE OF SERVICE: 02/17/20 Discharge Plan Patient Name: JAIRON LINN Facility: [facility]:[place] : 1950 Planned Disposition: Anticipated Discharge Date: Discharge Date: Expected LOS: Initial Reviewer: [email or web address] Initial Review Date: 02/13/2020 Generated: 02/17/20 2:00 pm Comments DCP- Discharge Planning Updated by [email or web address]: Nicole Romano on 02/17/20 11:[address] Patient Name: JAIRON LINN Admission Status: ER Accout number: [id number] Admission Date: 02-13-2020 : 1950 Admission Diagnosis: Attending: ZAHRA FOWLER Current LOS: 4 Anticipated DC Date: Planned Disposition: Primary Insurance: MEDICARE A & B Discharge Planning Comments: CM met with patient to complete initial dc planning assessment. CM educated patient on the CM role and verbal consent given by patient to complete assessment. CM verified patient's address, phone number, and emergency contact phone numbers. Patient lives at home with her and is independent. At discharge patient plans to return home and feels this is a safe discharge. CM discussed availability of home health, rehab services, and medical equipment. The patient has a 4 point cane, rolling walker, shower chair, and bed side commode. ms Linn states she does not need anymore equipment, and she does not need home health; declination signed. Patient denies other known discharge needs at this time. Transportation provider at discharge will be her who is at bedside. DC IMM delivered, explained, signed by the patient, and placed in chart. Signed form also left with the patient. CM will continue to follow and will assist as needed with dc plans/needs. Software Writer: Nicole Romano DCPIA - Discharge Planning Initial Assessment Updated by [email or web address]: Nicole Romano on 02/17/20 12:55 pm * Is the patient Alert and Oriented? Yes * How many steps to enter\exit or inside your home? 0/0 * PCP lucina * [facility] * Preadmission Environment Home with Family * ADLs Independent * Equipment Wound Vac * Verbal permission to speak to the caregivers and representatives has been obtained from the patient. N/A * Community resources currently utilized None * Additional services required to return to the preadmission environment? No * Can the patient safely return to the preadmission environment? Yes * Has this patient been hospitalized within the prior 30 days at any hospital? No Last DP export: 02/17/20 11:53 a Patient Name: JAIRON LINN Page [phone] at 1300 All edits/amendments must be made on the electronic document DICTATION DATE: 02/17/20 1300 GRINDING WHEEL INSPECTOR: ROBERT 02/17/20 1300 RPT#: [id number] DC DATE: STATUS: ADM IN [facility] [address] [place] [address] END OF REPORT
--- NOTE | 2020-02-17 15:02 | NUR ---
DISCHARGE PAPERWORK SIGNED, ALL QUESTIONS ANSWERED. IV TO RIGHT FOREARM DC'D, TIP INTACT. ESCORTED OUT VIA WHEELCHAIR.
--- NOTE | 2020-02-18 09:29 | MORECARE ---
CASE MANAGEMENT DISCHARGE SUMMARY PATIENT: JAIRNO LINN UNIT: [id number] ADM DATE: 02/13/20 AGE: 69 : 50 SEX: F ROOM/BED: D.2204 AUTHOR: LISA EUGENE PHYSICIAN: REFERRING PHYSICIAN: ZAHRA KENNEY MD DATE OF SERVICE: 02/18/20 Discharge Plan Patient Name: JAIRON LINN Facility: [facility]:[place] : 1950 Planned Disposition: Anticipated Discharge Date: Discharge Date: 02/17/2020 Expected LOS: Initial Reviewer: [email or web address] Initial Review Date: 02/13/2020 Generated: 02/18/20 10:28 am Comments DCP- Discharge Planning Updated by [email or web address]: Nicole Romano on 02/17/20 11:[address] Patient Name: JAIRON LINN Admission Status: ER Accout number: [id number] Admission Date: 02-13-2020 : 1950 Admission Diagnosis: Attending: ZAHRA FOWLER Current LOS: 4 Anticipated DC Date: Planned Disposition: Primary Insurance: MEDICARE A & B Discharge Planning Comments: CM met with patient to complete initial dc planning assessment. CM educated patient on the CM role and verbal consent given by patient to complete assessment. CM verified patient's address, phone number, and emergency contact phone numbers. Patient lives at home with her and is independent. At discharge patient plans to return home and feels this is a safe discharge. CM discussed availability of home health, rehab services, and medical equipment. The patient has a 4 point cane, rolling walker, shower chair, and bed side commode. ms Linn states she does not need anymore equipment, and she does not need home health; declination signed. Patient denies other known discharge needs at this time. Transportation provider at discharge will be her who is at bedside. DC IMM delivered, explained, signed by the patient, and placed in chart. Signed form also left with the patient. CM will continue to follow and will assist as needed with dc plans/needs. Production Supervisor Trainee: Nicole Romano DCPIA - Discharge Planning Initial Assessment Updated by [id number]: Nicole Romano on 02/17/20 12:55 pm * Is the patient Alert and Oriented? Yes * How many steps to enter\exit or inside your home? 0/0 * PCP lucina * [facility] * Preadmission Environment Home with Family * ADLs Independent * Equipment Wound Vac * Verbal permission to speak to the caregivers and representatives has been obtained from the patient. N/A * Community resources currently utilized None * Additional services required to return to the preadmission environment? No * Can the patient safely return to the preadmission environment? Yes * Has this patient been hospitalized within the prior 30 days at any hospital? No Last DP export: 02/17/20 12:00 p Patient Name: JAIRON LINN Page [phone] at 0929 All edits/amendments must be made on the electronic document DICTATION DATE: 02/18/20928 CAN INTAKE WORKER: ROBERT 02/18/20928 RPT#: [id number] DC DATE:02/17/20 STATUS: DIS IN [facility] [address] [place] [address] END OF REPORT
== END 2020-02-17 15:03 | disposition home or self-care (01) | DRG 392 ==
LOC: D.ER 08:57 → D.MS 12:06 → OBSVTIME 13:00 → D.MS 15:38
PROVIDERS: Family Medicine; Internal Medicine; ADMIT Family Medicine Adult Medicine; ATTEND Family Medicine Adult Medicine
DX: K20.9 Esophagitis, unspecified (principal); E87.1 Hypo-osmolality and hyponatremia; F17.203 Nicotine dependence unspecified, with withdrawal; K56.609 Unspecified intestinal obstruction, unspecified as to partial versus complete obstruction; A08.4 Viral intestinal infection, unspecified; R55 Syncope and collapse; I10 Essential (primary) hypertension; K29.70 Gastritis, unspecified, without bleeding; F10.10 Alcohol abuse, uncomplicated; K57.90 Diverticulosis of intestine, part unspecified, without perforation or abscess without bleeding; E86.9 Volume depletion, unspecified; Z86.73 Personal history of transient ischemic attack (TIA), and cerebral infarction without residual deficits

== ENCOUNTER 2020-11-07 08:54 | Inpatient (IN) | payer MEDICARE, BC ==
[~2020-11-07] VITALS: Ht 152.4 cm; Wt 56.1 kg
[~2020-11-07 08:54] MED LIST changes: +ALDACTONE25 MG PO; +FOLIC ACID1 MG PO; +THERAGRAN M [BK1 TAB PO; +THERMOTABS 1 GM1 GM PO; +VITAMIN B-1100 M1 PO
[2020-11-07] MEDS ORDERED: [UNRECOGNIZED DRUG - OTHER] PO (09:00)
[2020-11-07] MEDS ORDERED: MAGNESIUM OXID500 MG PO (09:00)
[2020-11-07] MEDS ORDERED: VITAMIN D31250 MCG PO (09:00)
[2020-11-07] MEDS ORDERED: ALDACTONE50 MG PO (09:01)
[2020-11-07] MEDS ORDERED: THERMOTABS 1 GM1 GM PO (09:01)
[2020-11-07] MEDS ORDERED: MYRBETRIQ50 MG PO (09:01)
[2020-11-07 09:43] LABS: INR 1.05 (0.85-1.17); PROTIME 12.7 SECONDS (11.6-15.0)
[2020-11-07 09:57] LABS: BASOPHILS 0.1 % (0-2); EOSINOPHILS 0 % (0-7); HEMATOCRIT 36.4 % (36.0-48.0); HEMOGLOBIN 12.7 g/dL (12-16); IMMATURE GRANULOCYTES 0.2 % (0-5); LYMPHOCYTE ABS# 0.54 10x3/uL (1.18-3.74); LYMPHOCYTES 6.2 % (15-50); MCH 31.4 pg (26.0-34.0); MCHC 34.9 g/dL (31.0-37.0); MCV 89.9 fL (80.0-100.0); MEAN PLATELET VOLUME 9.6 fL (7.4-10.4); MONOCYTES 8.3 % (2-11); NEUTROPHIL ABS# 7.43 10x3/uL (1.56-6.13); NEUTROPHILS 85.2 % (40-80); PLATELET COUNT 258 10x3/uL (130-400); RBC 4.05 10x6/uL (4.00-5.40); RDW 13.8 % (11.5-14.5); WBC 8.7 10x3/uL (4.8-10.8)
[2020-11-07 10:31] LABS: UDS - AMPHET NEGATIVE QUAL (NEGATIVE); UDS - BARB NEGATIVE QUAL (NEGATIVE); UDS - BENZO NEGATIVE QUAL (NEGATIVE); UDS - COCAINE NEGATIVE QUAL (NEGATIVE); UDS - OPIATE NEGATIVE QUAL (NEGATIVE); UDS - PCP NEGATIVE QUAL (NEGATIVE); UDS - THC NEGATIVE QUAL (NEGATIVE)
[2020-11-07 10:52] LABS: ALBUMIN 3.3 g/dL (3.4-5.0); ALKALINE PHOSPHATASE 148 U/L (30-120); ALT (SGPT) 170 U/L (10-68); BILIRUBIN - TOTAL 0.34 mg/dL (0.2-1.3); CALC OSMOLALITY 243 mosm/kg (275-300); CALCIUM 9.2 mg/dL (8.5-10.1); CARBON DIOXIDE 26.4 mmol/L (21.0-32.0); CHLORIDE - SERUM 87 mmol/L (98-107); CREATININE - SERUM 0.6 mg/dL (0.6-1.3); GLUCOSE 102 mg/dL (74-106); POTASSIUM - SERUM 4.2 mmol/L (3.5-5.1); PROTEIN - SERUM 7.4 g/dL (6.4-8.2); SODIUM 121 mmol/L (136-145); UREA NITROGEN 12 mg/dL (7-18); eGFR NON AFRICAN AMERICAN > 90 mL/min (90-120)
[2020-11-07 11:12] LABS: BILIRUBIN NEGATIVE (NEGATIVE); KETONE NEGATIVE (NEGATIVE); NITRITE POSITIVE (NEGATIVE); SQUAMOUS EPITHELIAL OCC HPF (0-4); UROBILINOGEN NORMAL mg/dL (< 2); WHITE CELLS - URINE OCC HPF (0-4)
[2020-11-07 11:13] LABS: BACTERIA MANY HPF (NONE SEEN)
--- NOTE | 2020-11-07 12:22 | NUR ---
22 gauge iv to left hand, flushes well, no s/s of infiltration. saline locked at this time
[2020-11-07 12:40] VITALS: BP 108/72
[2020-11-07 15:20] VITALS: BP 135/74; BMI 24.3
[2020-11-07 17:31] VITALS: BP 135/74
--- NOTE | 2020-11-07 19:28 | NUR ---
ASSUMED CARE OF PT FROM ER ASSESSMENT COMPLETE AND CHARTED RESTARTED IV TO LEFT WRIST WITH 20 GAUGE INSTRUCTED ON IS USE PT PULLING 1500 ML
[2020-11-07 21:01] VITALS: BP 119/62
--- NOTE | 2020-11-07 23:18 | NUR ---
ASSESSED AT THE BEGINNING OF THE SHIFT. PT IS ALERT AND ORIENTED, ABLE TO VERBALIZE NEEDS. SHE IS ON A 1500 CC FLUID RESTRICTION DUE TO HER SODIUM LEVEL. SHE IS UP AD SUDHEER TO THE BATHROOM WITH HER QUAD CANE. TELEMETRY SHOWS HER AT [address] AND SHE IS RESTING QUIET IN BED WITH NO REQUESTS OR COMPLAINTS. WE COLLECTED HER URINE AND SENT IT TO THE LAB. SHE DID NOT HAVE ANY HS MEDS ORDERED AND WAS TOLD IF SHE NEEDED ANYTHING TO LET US KNOW.
[2020-11-08 01:18] VITALS: BP 113/67
[2020-11-08 06:21] VITALS: BP 140/74
--- NOTE | 2020-11-08 07:00 | NUR ---
PT ASKING WHEN BREAKFAST WILL BE. CL IN REACH. WCTM
[2020-11-08 07:03] LABS: BASOPHILS 0.2 % (0-2); EOSINOPHILS 1.1 % (0-7); HEMATOCRIT 35.6 % (36.0-48.0); HEMOGLOBIN 12.5 g/dL (12-16); IMMATURE GRANULOCYTES 0.2 % (0-5); LYMPHOCYTE ABS# 0.56 10x3/uL (1.18-3.74); MCH 31.7 pg (26.0-34.0); MCHC 35.1 g/dL (31.0-37.0); MCV 90.4 fL (80.0-100.0); MEAN PLATELET VOLUME 9.5 fL (7.4-10.4); MONOCYTES 9.5 % (2-11); NEUTROPHIL ABS# 4.41 10x3/uL (1.56-6.13); PLATELET COUNT 249 10x3/uL (130-400); RBC 3.94 10x6/uL (4.00-5.40)
[2020-11-08 07:04] LABS: WBC 5.6 10x3/uL (4.8-10.8)
--- NOTE | 2020-11-08 07:30 | NUR ---
PT STATED THAT SHE NEEDS HER FIXODENT FROM THE BAG. BED SIDE REPORT RECIEVED. SHIFT ASSESSMENT COMPLETED. DIFFICULTY WITH BALANCE SITTING ON SIDE OF BED. CL IN REACH. NO FURTHER NEEDS AT THIS TIME. WCTM
[2020-11-08 07:42] LABS: ALBUMIN 2.9 g/dL (3.4-5.0); ALKALINE PHOSPHATASE 139 U/L (30-120); ALT (SGPT) 147 U/L (10-68); BILIRUBIN - TOTAL 0.24 mg/dL (0.2-1.3); CALC OSMOLALITY 253 mosm/kg (275-300); CALCIUM 9.4 mg/dL (8.5-10.1); CARBON DIOXIDE 26.4 mmol/L (21.0-32.0); CHLORIDE - SERUM 92 mmol/L (98-107); CREATININE - SERUM 0.5 mg/dL (0.6-1.3); GLUCOSE 97 mg/dL (74-106); MAGNESIUM - SERUM 1.6 mg/dL (1.8-2.4); PHOSPHOROUS 3.7 mg/dL (2.5-4.9); POTASSIUM - SERUM 4.2 mmol/L (3.5-5.1); PROTEIN - SERUM 6.8 g/dL (6.4-8.2); SODIUM 127 mmol/L (136-145); T4 THYROXIN - FREE 1.25 ng/dL (0.76-1.46); THYROID STIMULATING HORMONE 1.93 uIU/mL (0.36-3.74); UREA NITROGEN 9 mg/dL (7-18); eGFR NON AFRICAN AMERICAN > 90 mL/min (90-120)
--- NOTE | 2020-11-08 08:30 | NUR ---
PT ASKING WHEN BREAKFAST WILL BE. I STATED IT JUST MADE IT TO THE FLOOR. CL IN REACH. WCTM
[2020-11-08 09:11] VITALS: BP 141/84
--- NOTE | 2020-11-08 10:46 | NUR ---
PT ON CL. STATES SHE DIDN'T NEED ANYTHING AND DIDN'T EVEN KNOW SHE PRESSED IT. CL IN REACH. WCTM
--- NOTE | 2020-11-08 12:13 | NUR ---
SPOKE WITH Adina COLON APN ABOUT PT MYRBETRIQ 50 MG THE PT WAS CONCERNED ABOUT TAKING AT HOME. CL IN REACH. WCTM
[2020-11-08 12:14] VITALS: Ht 152.4 cm; Wt 56.1 kg
[2020-11-08 12:27] LABS: CHOL - HDL RATIO 2.1 ratio (2.3-4.1)
[2020-11-08 13:20] VITALS: BP 142/75
[2020-11-08 15:28] LABS: CKMB 0.4 U/L (0.0-3.6); CREATINE KINASE 89 UL (21-215); TROPONIN-I < 0.017 ng/mL (0.000-0.060)
[2020-11-08 18:27] VITALS: BP 124/75
--- NOTE | 2020-11-08 19:00 | NUR ---
BEDSIDE REPORT RECEIVED AND CARE OF PT ASSUEMD. PT LYING IN SUPINE POSITION. IV TO LEFT HAND PATENT WITH NS INFUSING AT 50 ML/HR. WILL MONITOR FOR NEEDS.
--- NOTE | 2020-11-08 21:00 | NUR ---
NO HS MEDS SCHEDULED. PT RESTING QUIETLY IN SUPINE POSITION WITH EYES CLOSED AND EASY RESPIRATIONS. WILL CONTINUE TO MONITOR FOR NEEDS.
[2020-11-08 22:08] VITALS: BP 107/66
--- NOTE | 2020-11-08 22:15 | NUR ---
LAB HERE DRAWING CK / TROP
[2020-11-08 23:04] LABS: CKMB 0.7 U/L (0.0-3.6); CREATINE KINASE 70 UL (21-215)
[2020-11-08 23:07] LABS: TROPONIN-I < 0.017 ng/mL (0.000-0.060)
[2020-11-09 05:54] VITALS: BP 124/73
[2020-11-09 06:17] LABS: BASOPHILS 0.2 % (0-2); EOSINOPHILS 0.8 % (0-7); IMMATURE GRANULOCYTES 0.2 % (0-5); LYMPHOCYTE ABS# 0.59 10x3/uL (1.18-3.74); LYMPHOCYTES 9.8 % (15-50); MCH 31.2 pg (26.0-34.0); MCHC 34.3 g/dL (31.0-37.0); MCV 90.9 fL (80.0-100.0); MEAN PLATELET VOLUME 9.6 fL (7.4-10.4); MONOCYTES 6.8 % (2-11); NEUTROPHIL ABS# 4.93 10x3/uL (1.56-6.13); NEUTROPHILS 82.2 % (40-80); PLATELET COUNT 280 10x3/uL (130-400); RBC 3.85 10x6/uL (4.00-5.40)
[2020-11-09 06:57] LABS: ALBUMIN 2.8 g/dL (3.4-5.0); ALKALINE PHOSPHATASE 143 U/L (30-120); ALT (SGPT) 133 U/L (10-68); CALC OSMOLALITY 255 mosm/kg (275-300); CALCIUM 9.7 mg/dL (8.5-10.1); CARBON DIOXIDE 25.4 mmol/L (21.0-32.0); CHLORIDE - SERUM 94 mmol/L (98-107); CKMB 0.5 U/L (0.0-3.6); CREATINE KINASE 51 UL (21-215); CREATININE - SERUM 0.4 mg/dL (0.6-1.3); GLUCOSE 97 mg/dL (74-106); MAGNESIUM - SERUM 1.8 mg/dL (1.8-2.4); PHOSPHOROUS 3.6 mg/dL (2.5-4.9); POTASSIUM - SERUM 4.2 mmol/L (3.5-5.1); PROTEIN - SERUM 6.6 g/dL (6.4-8.2); SODIUM 128 mmol/L (136-145); TROPONIN-I < 0.017 ng/mL (0.000-0.060); UREA NITROGEN 11 mg/dL (7-18); eGFR NON AFRICAN AMERICAN > 90 mL/min (90-120)
--- NOTE | 2020-11-09 08:25 | NUR ---
PT REQUESTING SOME TYLENOL AND WALKER. STATES SHE COULD BRING HERS FROM HOME. I STATED THAT WOULD BE FINE AND I CAN TRY AND FIND ONE. CL IN REACH. REQUESTED A COFFEE BUT REMINDED ABOUT HER FLUID RESTRICTION AND VOICED UNDERSTANDING. CHARISSA
[2020-11-09 09:42] VITALS: BP 114/71
[2020-11-09] MEDS ORDERED: NICODERM CQ1 EAC2 TRANSDERM (13:18)
[2020-11-09] MEDS ORDERED: FLORAJEN DIGES1 EACH PO (13:18)
[2020-11-09] MEDS ORDERED: OMNICEF300 MG PO (13:19)
[2020-11-09] MEDS ORDERED: MULTI-DAY VITAM1 TAB PO (13:19)
[2020-11-09] MEDS ORDERED: FOLIC ACID1 MG PO (13:19)
[2020-11-09] MEDS ORDERED: BAYER CHEWABLE81 MG PO (13:19)
[2020-11-09] MEDS ORDERED: PLAVIX75 MG PO (13:19)
[2020-11-09] MEDS ORDERED: PROTONIX40 MG PO (13:20)
[2020-11-09] MEDS ORDERED: LIPITOR20 MG PO (13:21)
[2020-11-09 14:35] VITALS: BP 116/69
--- NOTE | 2020-11-09 14:52 | NUR ---
IV THERAPY REMOVED FROM LEFT FOREARM WITH TIP INTACT. DISCHARGE INSTRUCTIONS GIVEN. PT VERBALIZED UNDERSTANDING. LEFT VIA WHEELCHAIR TO MEET DOWNSTAIRS IN CAR.
--- NOTE | 2020-11-09 21:03 | MORECARE ---
CASE MANAGEMENT DISCHARGE SUMMARY PATIENT: JAIRON TINOCO UNIT: [id number] ADM DATE: 11/08/20 AGE: 70 : 50 SEX: F ROOM/BED: D.2223 AUTHOR: JABIER,DOC PHYSICIAN: REFERRING PHYSICIAN: JULIO C LOPEZ MD DATE OF SERVICE: 11/09/20 Case Management Discharge Planning Summary DCP REVIEW SUMMARY ANTICIPATED D/C DATE: EXPECTED LOS : CASE STATUS: DCP Initiated INITIAL REVIEW: 11/07/2020 INITIAL REVIEWER: Zulma Morfin FINAL DISCHARGE DISPOSITION: 01 : Home or Self Care (Routine Discharge) FINAL REVIEWER: Zulma Morfin FINAL REVIEW DATE: 11/09/2020 DCP Focus Questions & Answers DCP Screen QUESTION: ANSWER High Risk Factors: : Hosp related to CHF, COPD, DM, End Stage Ds, CVA, CA DCP Evaluation QUESTION: ANSWER Patient's ability to cope with chronic illness : d. No chronic illness Would patient like to participate in any Care Coordination programs (if applicable): : Not applicable Mental health screen: : No mental health history DCP Re-evaluation QUESTION: ANSWER Would patient like to participate in any Care Coordination programs (if applicable): : Not applicable PATIENT: JAIRON TINOCO ENCOUNTER: [id number] MEDICAL RECORD#: [id number] ADMISSION DATE: 11/08/2020 DISCHARGE DATE: 11/09/2020 ATTENDING MD: JULIO C GUEVARA : AGE: 70 MARITAL STATUS: M DC PLAN ID: [id number] FACILITY: [facility] PRINTED ON: 11/09/20 21:03 CT All edits/amendments must be made on the electronic document DICTATION DATE: 11/09/202102 LABORATORY ANIMAL CARE VETERINARIAN: DM 11/09/202102 RPT#: [id number] DC DATE:11/09/20 STATUS: DIS IN [facility] [address] [place] [address] END OF REPORT
--- NOTE | 2020-11-09 21:13 | MORECARE ---
CASE MANAGEMENT DISCHARGE SUMMARY PATIENT: JAIRON TINOCO UNIT: [id number] ADM DATE: 11/08/20 AGE: 70 : 50 SEX: F ROOM/BED: D.2223 AUTHOR: JABIERDOC PHYSICIAN: REFERRING PHYSICIAN: JULIO C LOPEZ MD DATE OF SERVICE: 11/09/20 Case Management Discharge Planning Summary COMMENTS ENTERED DATE: 11/09/20 21:04 CT COMMENT TYPE: Discharge Planning REVIEWER: Zulma Morfin CM spoke with patient to complete initial dc planning assessment. CM educated patient on the CM role and verbal consent given by patient to complete assessment. Patient lives at home with family. Patient is independent. At discharge patient plans to return home and feels this is a safe discharge. CM discussed availability of home health, rehab services, and medical equipment. Patient will have family to transport home. Patient denied known discharge needs at this time. CM will continue to follow and will assist as needed with dc plans/needs. DCP REVIEW SUMMARY ANTICIPATED D/C DATE: EXPECTED LOS : CASE STATUS: DCP Initiated INITIAL REVIEW: 11/07/2020 INITIAL REVIEWER: Zulma Morfin FINAL DISCHARGE DISPOSITION: 01 : Home or Self Care (Routine Discharge) FINAL REVIEWER: Zulma Morfin FINAL REVIEW DATE: 11/09/2020 DCP Focus Questions & Answers DCP Screen QUESTION: ANSWER High Risk Factors: : Hosp related to CHF, COPD, DM, End Stage Ds, CVA, CA DCP Evaluation QUESTION: ANSWER Patient's ability to cope with chronic illness : d. No chronic illness Patient gives permission to discuss discharge plans with: (name, relationship and number) : [phone] Patient's current cognitive status: : *Oriented to person, place, situation, time and present Patient and/or caregiver agree upon recommended discharge plan? : Yes Physical Status: : Independent with ADL's Functional screen assessment: : Other Does the patient have the ability to pay for or attain post discharge needs / services? : Yes Living Arrangements: : Home with Spouse/Significant Other Functional screen comments: : SPEECH SEEMS SLIGHTLY SLURRED Is there a likelihood that the patient will require additional services to return to the preadmission environment? : N/A Baseline cognitive status: : *Oriented to person, place, situation, time and present Patient with capacity for self-care or can be cared for in same environment as prior to hospitalization? : Yes Results of this evaluation have been discussed with: : Patient Physical environment modification needed / anticipated for discharge: : N/A Medication Management: : Patient states can read and understand medication labels Pharmacy [facility] : [facility] [address] Planned post hospital services available for patient? : N/A Does Patient have transportation to get home and to follow-up medical appointments when discharged from the hospital? : Yes Planned post hospital services covered by insurance plan? : N/A Would patient like to participate in any Care Coordination programs (if applicable): : Not applicable Does the patient have electricity at home? : Yes Does the patient have running water in their house? : Yes Equipment in use: : Cane - Quad Equipment in use: : Walker - Rolling Mental health screen: : No mental health history Abuse/Neglect: : None Resources / Services in place: : None DCP Re-evaluation QUESTION: ANSWER Would patient like to participate in any Care Coordination programs (if applicable): : Not applicable PATIENT: JAIRON TINOCO ENCOUNTER: [id number] MEDICAL RECORD#: [id number] ADMISSION DATE: 11/08/2020 DISCHARGE DATE: 11/09/2020 ATTENDING MD: JULIO C GUEVARA : AGE: 70 MARITAL STATUS: M DC PLAN ID: [id number] FACILITY: [facility] PRINTED ON: 11/09/20 21:13 CT All edits/amendments must be made on the electronic document DICTATION DATE: 11/09/202112 WAITER/WAITRESS COUNTER: ROBERT 11/09/202112 RPT#: [id number] DC DATE:11/09/20 STATUS: DIS IN [facility] [address] [place] [address] END OF REPORT
== END 2020-11-09 15:03 | disposition home or self-care (01) | DRG 690 ==
LOC: D.ER 08:54 → OBSVTIME 12:24 → D.MS 12:24
PROVIDERS: Family Medicine; ADMIT Emergency Medicine; ATTEND Emergency Medicine
DX: N39.0 Urinary tract infection, site not specified (principal); E87.1 Hypo-osmolality and hyponatremia; G45.9 Transient cerebral ischemic attack, unspecified; R74.01 Elevation of levels of liver transaminase levels; R53.1 Weakness; Z86.73 Personal history of transient ischemic attack (TIA), and cerebral infarction without residual deficits; Z85.3 Personal history of malignant neoplasm of breast; I10 Essential (primary) hypertension